=== PATIENT | female | born 1960 | race Caucasian/White ===

== ENCOUNTER → 2016-07-09 | Outpatient (CLI) | payer BC ==
--- NOTE | 2016-07-09 10:09 | P.HPBAR ---
Bariatric H&P - History & Physicial H&P Date: 07/09/16 History & Physicial: Visit/CC: bariatric follow up Patient initial contact: Initial weight: 98.339 kg Initial weight in pounds: 216.80 Height: 5 ft 3 in Initial BMI: 38.4 Last weight: Current weight: 92.805 kg Current weight in pounds: 204.60 Current BMI: 36.2 [place] body weight (based on NIH guidelines): 52.163 kg Excess body weight loss: 11.9% The patient is a 55 year-old F who presents for Bariatric Assessment. The patient's 10 days status post sleeve gastrectomy. She has lost approximately 12 pounds. She has no real complaints. She has minimal GERD. Past Medical History Past Medical History: Asthma, GERD/Reflux, Osteoarthritis (OA), Thyroid Disorder Additional Past Medical History / Comment(s): hx hiatal hernia, History of Any Multi-Drug Resistant Organisms: None Reported Past Surgical History: Bariatric Surgery, Section, Cholecystectomy, Hysterectomy, Orthopedic Surgery, Tonsillectomy Additional Past Surgical History / Comment(s): lt knee arthroscopy, laparoscopy exams with anesthesia x 2, lap band /later revision, left foot surgery x 2, rt foot surgery, sinus surgery, surgery for fx nose, lap band removed. Gastric sleeve. Past Anesthesia/Blood Transfusion Reactions: No Reported Reaction Past Psychological History: No Psychological Hx Reported Smoking Status: Never smoker Past Alcohol Use History: Occasional Past Drug Use History: None Reported - Past Family History Mother Family Medical History: Diabetes Mellitus Father Family Medical History: Cancer Additional Family Medical History / Comment(s): colon Brother(s) Family Medical History: Deep Vein Thrombosis (DVT) Surgical - Exam Vital Signs Temp Pulse Resp BP 97.9 F 76 16 107/58 07/09/16 09:53 07/09/16 09:53 07/09/16 09:53 07/09/16 09:53 - General well developed, no distress - Eyes PERRL - Neck no masses - Respiratory normal expansion - Cardiovascular Rhythm: regular - Abdomen Abdomen: soft, non tender Bariatric Assessment & Plan Plan: Status post sleeve yesterday. Patient doing quite well. She will slowly advance her diet. She'll follow-up in 2 weeks. She is to continue her Carafate. Bariatric Checklist Checklist: Plan: Checklist: EGD: 1. Hiatal hernia: 2. H. Pylori: HgbA1c: Vitamin D: Smoking: Never smoker Primary care physician referral: gorge malik Psychiatry clearance: Cardiology clearance: Sleep study: Diet journal: VTE risk score: VTE risk level: Rehab needs at discharge:
== END | disposition home or self-care (01) ==
CPT/HCPCS: 99211

== ENCOUNTER → 2016-07-22 | Outpatient (CLI) | payer BC | END | disposition home or self-care (01) | CPT/HCPCS: 97803 ==

== ENCOUNTER → 2016-07-29 | Outpatient (CLI) | payer BC ==
--- NOTE | 2016-07-29 15:46 | P.HPBAR ---
Bariatric H&P - History & Physicial H&P Date: 07/29/16 History & Physicial: Visit/CC: sleeve f/u (surgery 06/28/16) Patient initial contact: Initial weight: 98.339 kg Initial weight in pounds: 216.80 Height: 5 ft 3 in Initial BMI: 38.4 Last weight: Current weight: 89.222 kg Current weight in pounds: 196.70 Current BMI: 34.8 [place] body weight (based on NIH guidelines): 52.163 kg Excess body weight loss: 19.7% The patient is a 55 year-old F who presents for Bariatric Assessment. The patient is status post sleeve gastrectomy. She is doing quite well. She is approximately 1 month postop. She is amenable GERD symptoms. Past Medical History Past Medical History: Asthma, GERD/Reflux, Osteoarthritis (OA), Thyroid Disorder Additional Past Medical History / Comment(s): hx hiatal hernia, History of Any Multi-Drug Resistant Organisms: None Reported Past Surgical History: Bariatric Surgery, Section, Cholecystectomy, Hysterectomy, Orthopedic Surgery, Tonsillectomy Additional Past Surgical History / Comment(s): lt knee arthroscopy, laparoscopy exams with anesthesia x 2, lap band /later revision, left foot surgery x 2, rt foot surgery, sinus surgery, surgery for fx nose, lap band removed April 2016. Gastric sleeve 06/28/16 Past Anesthesia/Blood Transfusion Reactions: No Reported Reaction Past Psychological History: No Psychological Hx Reported Smoking Status: Never smoker Past Alcohol Use History: Occasional Past Drug Use History: None Reported - Past Family History Mother Family Medical History: Diabetes Mellitus Father Family Medical History: Cancer Additional Family Medical History / Comment(s): colon Brother(s) Family Medical History: Deep Vein Thrombosis (DVT) Surgical - Exam Vital Signs Temp Pulse Resp BP 98.0 F 81 14 112/71 07/29/16 14:32 07/29/16 14:32 07/29/16 14:32 07/29/16 14:32 - General well developed, no distress - Eyes PERRL - ENT normal pinna - Neck no masses - Respiratory normal expansion - Cardiovascular Rhythm: regular - Abdomen Abdomen: soft, non tender Bariatric Assessment & Plan Plan: Status post sleeve gastrectomy. Patient's GERD symptoms will be observed. She' ll follow-up one month. Bariatric Checklist Checklist: Plan: Checklist: EGD: 1. Hiatal hernia: 2. H. Pylori: HgbA1c: Vitamin D: Smoking: Never smoker Primary care physician referral: gorge malik Psychiatry clearance: Cardiology clearance: Sleep study: Diet journal: VTE risk score: VTE risk level: Rehab needs at discharge:
== END | disposition home or self-care (01) ==
CPT/HCPCS: 99211

== ENCOUNTER → 2016-09-09 | Outpatient (CLI) | payer BC ==
[2016-09-09 14:20] VITALS: BP 130/83; PULSE 71; RESP 16; TEMP 98.3; BMI 32.8
--- NOTE | 2016-09-09 14:44 | P.HPBAR ---
Bariatric H&P - History & Physicial H&P Date: 09/09/16 History & Physicial: Visit/CC: sleeve follow-up Patient initial contact: Initial weight: 98.339 kg Initial weight in pounds: 216.80 Height: 5 ft 3 in Initial BMI: 38.4 Last weight: Current weight: 84.028 kg Current weight in pounds: 185.00 Current BMI: 32.8 [place] body weight (based on NIH guidelines): 52.163 kg Excess body weight loss: 31.2% The patient is a 55 year-old F who presents for Bariatric Assessment. The patient presents today for sleeve gastrectomy fall. She is doing quite well. She's had some minimal GERD symptoms. She states she had some nausea over the weekend which has resolved. Past Medical History Past Medical History: Asthma, GERD/Reflux, Osteoarthritis (OA), Thyroid Disorder Additional Past Medical History / Comment(s): hx hiatal hernia, History of Any Multi-Drug Resistant Organisms: None Reported Past Surgical History: Bariatric Surgery, Section, Cholecystectomy, Hysterectomy, Orthopedic Surgery, Tonsillectomy Additional Past Surgical History / Comment(s): lt knee arthroscopy, laparoscopy exams with anesthesia x 2, lap band /later revision, left foot surgery x 2, rt foot surgery, sinus surgery, surgery for fx nose, lap band removed April 2016. Gastric sleeve 06/28/16 Past Anesthesia/Blood Transfusion Reactions: No Reported Reaction Past Psychological History: No Psychological Hx Reported Smoking Status: Never smoker Past Alcohol Use History: Occasional Past Drug Use History: None Reported - Past Family History Mother Family Medical History: Diabetes Mellitus Father Family Medical History: Cancer Additional Family Medical History / Comment(s): colon Brother(s) Family Medical History: Deep Vein Thrombosis (DVT) Surgical - Exam Vital Signs Temp Pulse Resp BP 98.3 F 71 16 130/83 09/09/16 14:18 09/09/16 14:18 09/09/16 14:18 09/09/16 14:18 - General well developed, no distress - Eyes PERRL - ENT normal pinna - Respiratory normal expansion - Abdomen Abdomen: soft, non tender Bariatric Assessment & Plan Plan: The patient is status post sleeve yesterday. Her GERD symptoms are minimal. She lost 11 pounds since her last visit. She'll follow-up in one month. Bariatric Checklist Checklist: Plan: Checklist: EGD: 1. Hiatal hernia: 2. H. Pylori: HgbA1c: Vitamin D: Smoking: Never smoker Primary care physician referral: gorge malik Psychiatry clearance: Cardiology clearance: Sleep study: Diet journal: VTE risk score: VTE risk level: Rehab needs at discharge:
== END | disposition home or self-care (01) ==
LOC: BARWHC3 13:06
PROVIDERS: ATTEND Surgery
DX: Z48.815 Encounter for surgical aftercare following surgery on the digestive system (principal); E66.01 Morbid (severe) obesity due to excess calories; Z68.30 Body mass index [BMI] 30.0-30.9, adult; Z98.84 Bariatric surgery status; Z71.3 Dietary counseling and surveillance; K21.9 Gastro-esophageal reflux disease without esophagitis
CPT/HCPCS: 99211

== ENCOUNTER → 2016-12-09 | Outpatient (CLI) | payer BC ==
[2016-12-09 14:16] VITALS: BP 137/63; PULSE 66; RESP 14; TEMP 97.8; BMI 28.3
[2016-12-09 14:42] LABS: CH 28.7; CHCM 31.9; HCT 41.7 % (34.0-46.0); HDW 2.37; HGB 13.5 gm/dL (11.4-16.0); MCH 29.3 pg (25.0-35.0); MCHC 32.4 g/dL (31.0-37.0); MCV 90.5 fL (80.0-100.0); RBC 4.61 m/uL (3.80-5.40); RDW 14.4 % (11.5-15.5); WBC 6.5 k/uL (3.8-10.6)
[2016-12-09 15:07] LABS: ALT 27 U/L (9-52); AST 20 U/L (14-36); Alkaline Phosphatase 82 U/L (38-126); Anion Gap 10 mmol/L; Blood Urea Nitrogen 14 mg/dL (7-17); Calcium 9.7 mg/dL (8.4-10.2); Carbon Dioxide 29 mmol/L (22-30); Chloride 105 mmol/L (98-107); Glucose 105 mg/dL (74-99); Non-African American GFR(MDRD) >60 (>60 ml/min/1.73 sqM); Potassium 4.1 mmol/L (3.5-5.1); Sodium 144 mmol/L (137-145); Total Bilirubin 0.4 mg/dL (0.2-1.3); Total Protein 6.8 g/dL (6.3-8.2)
--- NOTE | 2016-12-09 15:57 | P.HPBAR ---
Bariatric H&P - History & Physicial H&P Date: 12/09/16 History & Physicial: Visit/CC: 6 mos sleeve f/u Patient initial contact: Initial weight: 98.339 kg Initial weight in pounds: 216.80 Height: 5 ft 3 in Initial BMI: 38.4 Last weight: Current weight: 72.711 kg Current weight in pounds: 160.30 Current BMI: 28.3 [place] body weight (based on NIH guidelines): 52.163 kg Excess body weight loss: 55.5% The patient is a 56 year-old F who presents for Bariatric Assessment. Patient rents today for sleeve gastrectomy follow-up. She's doing quite well. She weighs 160 pounds A she has lost approximately 57 pounds since surgery. She has some mild GERD. Past Medical History Past Medical History: Asthma, GERD/Reflux, Osteoarthritis (OA), Thyroid Disorder Additional Past Medical History / Comment(s): hx hiatal hernia, History of Any Multi-Drug Resistant Organisms: None Reported Past Surgical History: Bariatric Surgery, Section, Cholecystectomy, Hysterectomy, Orthopedic Surgery, Tonsillectomy Additional Past Surgical History / Comment(s): lt knee arthroscopy, laparoscopy exams with anesthesia x 2, lap band /later revision, left foot surgery x 2, rt foot surgery, sinus surgery, surgery for fx nose, lap band removed April 2016. Gastric sleeve 06/28/16 Past Anesthesia/Blood Transfusion Reactions: No Reported Reaction Past Psychological History: No Psychological Hx Reported Smoking Status: Never smoker Past Alcohol Use History: Occasional Past Drug Use History: None Reported - Past Family History Mother Family Medical History: Diabetes Mellitus Father Family Medical History: Cancer Additional Family Medical History / Comment(s): colon Brother(s) Family Medical History: Deep Vein Thrombosis (DVT) Surgical - Exam Vital Signs Temp Pulse Resp BP 97.8 F 66 14 137/63 12/09/16 14:03 12/09/16 14:03 12/09/16 14:03 12/09/16 14:03 - General well developed, no distress - Eyes PERRL - Neck no masses - Respiratory normal expansion - Cardiovascular Rhythm: regular - Abdomen Abdomen: soft, non tender Results - Labs 12/09/16 14:27 12/09/16 14:27 Abnormal Lab Results - Last 24 Hours (Table) 12/09/16 Range/Units 14:27 Glucose 105 H (74-99) mg/dL TSH 0.175 L (0.465-4.680) mIU/L Diabetes panel 12/09/16 Range/Units 14:27 Sodium 144 (137-145) mmol/L Potassium 4.1 (3.5-5.1) mmol/L Chloride 105 (98-107) mmol/L Carbon Dioxide 29 (22-30) mmol/L BUN 14 (7-17) mg/dL Creatinine 0.70 (0.52-1.04) mg/dL Glucose 105 H (74-99) mg/dL Calcium 9.7 (8.4-10.2) mg/dL AST 20 (14-36) U/L ALT 27 (9-52) U/L Alkaline Phosphatase 82 (38-126) U/L Total Protein 6.8 (6.3-8.2) g/dL Albumin 4.0 (3.5-5.0) g/dL Thyroid panel 12/09/16 Range/Units 14:27 TSH 0.175 L (0.465-4.680) mIU/L Calcium panel 12/09/16 Range/Units 14:27 Calcium 9.7 (8.4-10.2) mg/dL Albumin 4.0 (3.5-5.0) g/dL Pituitary panel 12/09/16 Range/Units 14:27 Sodium 144 (137-145) mmol/L Potassium 4.1 (3.5-5.1) mmol/L Chloride 105 (98-107) mmol/L Carbon Dioxide 29 (22-30) mmol/L BUN 14 (7-17) mg/dL Creatinine 0.70 (0.52-1.04) mg/dL Glucose 105 H (74-99) mg/dL Calcium 9.7 (8.4-10.2) mg/dL TSH 0.175 L (0.465-4.680) mIU/L Adrenal panel 12/09/16 Range/Units 14:27 Sodium 144 (137-145) mmol/L Potassium 4.1 (3.5-5.1) mmol/L Chloride 105 (98-107) mmol/L Carbon Dioxide 29 (22-30) mmol/L BUN 14 (7-17) mg/dL Creatinine 0.70 (0.52-1.04) mg/dL Glucose 105 H (74-99) mg/dL Calcium 9.7 (8.4-10.2) mg/dL Total Bilirubin 0.4 (0.2-1.3) mg/dL AST 20 (14-36) U/L ALT 27 (9-52) U/L Alkaline Phosphatase 82 (38-126) U/L Total Protein 6.8 (6.3-8.2) g/dL Albumin 4.0 (3.5-5.0) g/dL Bariatric Assessment & Plan Plan: Status post sleeve gastrectomy. Patient is doing quite well. Her GERD symptoms are minimal. She'll follow-up in one month. Bariatric Checklist Checklist: Plan: Checklist: EGD: 1. Hiatal hernia: 2. H. Pylori: HgbA1c: Vitamin D: Smoking: Never smoker Primary care physician referral: gorge malik Psychiatry clearance: Cardiology clearance: Sleep study: Diet journal: VTE risk score: VTE risk level: Rehab needs at discharge:
[2016-12-09 16:09] LABS: Vitamin B12 668 pg/mL (239-931)
== END | disposition home or self-care (01) ==
LOC: BARWHC3 13:49
PROVIDERS: ATTEND Surgery
DX: Z48.815 Encounter for surgical aftercare following surgery on the digestive system (principal); K21.9 Gastro-esophageal reflux disease without esophagitis; E66.01 Morbid (severe) obesity due to excess calories; E44.0 Moderate protein-calorie malnutrition; E55.9 Vitamin D deficiency, unspecified; Z98.84 Bariatric surgery status
CPT/HCPCS: 36415; 80053; 82306; 82525; 82607; 82746; 84425; 84443; 84590; 85027; 99211

== ENCOUNTER → 2017-02-14 | Outpatient (CLI) | payer BC ==
--- NOTE | 2017-02-17 10:16 | MM ---
Reason for exam: screening (asymptomatic). Last mammogram was performed 4 years and 4 months ago. History: Patient is postmenopausal. Physical Findings: A clinical breast exam by your physician is recommended on an annual basis and results should be correlated with mammographic findings. MG Screening Mammo w CAD Bilateral CC and MLO view(s) were taken. Prior study comparison: October 07, 2012, bilateral digital screening mammo w/CAD. May 02, 2011, bilateral digital screening mammo w/CAD. There are scattered fibroglandular densities. There is no discrete abnormality. No significant changes when compared with prior studies. ASSESSMENT: Negative, BI-RAD 1 RECOMMENDATION: Routine screening mammogram of both breasts in 1 year.
== END | disposition home or self-care (01) ==
LOC: RADMAMWWP 13:10
PROVIDERS: ATTEND Family Medicine
DX: Z12.31 Encounter for screening mammogram for malignant neoplasm of breast (principal)

== ENCOUNTER → 2017-05-07 | Outpatient (CLI) | payer BC ==
--- NOTE | 2017-05-07 15:30 | WWHP ---
[facility] - HISTORY AND PHYSICAL DATE OF SERVICE: 05/07/2017 CHIEF COMPLAINT: The patient is here for her routine gynecologic exam. HPI: This is a 56-year-old, G2, P2, with an LMP of 1985 with status post LISA with unilateral oophorectomy and she also had the other ovary removed at a later time for benign reasons. It has been about 4-5 years since her last pelvic exam. She did have a mammogram on 02/14/17, which was benign. She is without gynecologic complaints. PAST MEDICAL HISTORY: Hypothyroidism, anxiety, and gastroesophageal reflux disease. MEDICATIONS: Vega Thyroid 60 mg daily. Fluoxetine 10 mg daily. Omeprazole 20 mg p.r.n. Probiotic 1 daily. [id number] which contains of vitamin D3 2 drops daily. ALLERGIES: TO MORPHINE AND SULFA. PAST SURGICAL HISTORY: Lap band surgery 2002, lap band revision 2008, gastric sleeve surgery 2015, laparoscopic cholecystectomy in the past. section x2, colonoscopy 2011 , LISA with unilateral oophorectomy and appendectomy in 1987 and removal of the remaining ovary at age 34. 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 A dermoid cyst was also removed at the time of hysterectomy. She briefly used ERT after the hysterectomy, but this was for 1 year or less. She has no history of STDs. SOCIAL HISTORY: She denies tobacco, alcohol, and drug use. She no longer drinks alcohol because it seems to burn after her gastric sleeve surgery. She has been since 1979 and shows dogs. FAMILY HISTORY: Father had colon cancer. Mother has type 1 diabetes. REVIEW OF SYSTEMS: She has lost a significant amount of weight following her bariatric surgeries. She previously was up to 237 pounds prior to the surgeries. She has lost approximately 70 pounds following her gastric sleeve surgery. She denies respiratory, cardiac or GI problems. PHYSICAL EXAM: Blood pressure 120/88, height 5 feet 3 inches, weight 139 pounds, BMI 25, temperature 96.3, pulse 75. This is a well-developed, well-nourished white female who is alert and oriented x3, in no acute distress. HEENT is within normal limits. NECK: Supple without mass or thyromegaly chest. LUNGS: Clear to auscultation. HEART: Regular rate and rhythm. Breasts are without mass or discharge. Axillary exam is negative for adenopathy. Back negative for CVA tenderness. ABDOMEN: Soft, nontender, without palpable masses. Pelvic exam: External genitalia reveals mild atrophy without lesions. Vagina reveals mild atrophy without lesions. There is no evidence of prolapse. Bimanual exam is negative for mass or tenderness. Rectovaginal exam is negative for mass or tenderness and is negative for occult blood. Extremities nontender. IMPRESSION: 1. A 56-year-old menopausal female status post Total abdominal hysterectomy and bilateral salpingo-oophorectomy for benign reasons with normal gynecologic exam. 2. Status post significant weight loss following bariatric surgery. PLAN: 1. Pap smears have been discontinued. 2. Self breast examination was discussed. 3. Osteoporosis prevention was discussed. She states she has had bone density testing done through Dr. Celis and these have been normal according to the patient. 4. She will return in 1 year. MMODL / IJN: [id number] / MTDD
== END | disposition home or self-care (01) ==
LOC: WWCWWP 11:19
PROVIDERS: ATTEND Obstetrics & Gynecology
DX: Z01.419 Encounter for gynecological examination (general) (routine) without abnormal findings (principal)

== ENCOUNTER → 2017-05-27 | Outpatient (CLI) | payer BC ==
--- NOTE | 2017-05-28 | MR ---
EXAMINATION TYPE: MR shoulder RT wo con DATE OF EXAM: 05/27/2017 COMPARISON: NONE HISTORY: RT SHOULDER PAIN TECHNIQUE: Multiplanar, multisequence imaging of the right shoulder is performed without contrast. FINDINGS: The subscapularis tendon is intact. Biceps tendon is intact. There are small areas of increased signa l in the supraspinatus tendon near the attachment on the greater tuberosity of the humerus. There is no retraction. There is no subacromial impingement. The glenohumeral joint is intact. Glenoid camrel a ppear intact. There is no evidence of a fracture. The AC joint is intact. There are small degenerativ e cystic changes at the greater tuberosity of the humerus. IMPRESSION: Mild signal changes in the supraspinatus tendon consistent with focal tendinitis. No retraction. No e vidence of complete rotator cuff tear.
== END | disposition home or self-care (01) ==
LOC: RADMRIMAIN 17:04
PROVIDERS: ATTEND Orthopaedic Surgery
DX: M67.813 Other specified disorders of tendon, right shoulder (principal); M25.511 Pain in right shoulder

== ENCOUNTER → 2017-12-22 | Outpatient (CLI) | payer BC ==
--- NOTE | 2017-12-23 06:08 | CT ---
EXAMINATION TYPE: CT soft tissue neck w con DATE OF EXAM: 12/22/2017 HISTORY: Left sided neck swelling and facial tenderness COMPARISON: CT neck July 02, 2012 CT DLP: 455 mGycm. Automated Exposure Control for Dose Reduction was Utilized. TECHNIQUE: CT scan of the neck is performed with IV Contrast, patient injected with 100 mL of Isovue 300, axial images are obtained, coronal and sagittal reformatted images are reviewed. FINDINGS: Airway: No gross abnormality seen. Parotid/submandibular glands: No gross abnormality seen. Carotid/Vascular Structures: No significant plaque at carotid bulb level is present bilaterally Osseous Structures: Straightening of cervical spine is seen. Coronal images demonstrate levoconvex sc oliotic curvature centered in the upper to mid thoracic spine . Other: There is 1.1 cm mucous retention cyst or polyp redemonstrated posterior-inferior right maxilla ry sinus is stable or perhaps slightly larger versus prior CT. There are prominent but subcentimeter left-sided submandibular lymph nodes, and these in retrospect a re unchanged in size from 2012 CT. Largest at level of hyoid bone posterior to the left submandibular gland and anterior to carotid and internal jugular vein measures 1.0 x 0.8 cm. No suspicious inflamm atory change or fat stranding is present. Parapharyngeal fat spaces are symmetric and maintained. IMPRESSION: Prominent but subcentimeter asymmetric left-sided lymph nodes grossly unchanged from 2012 CT this presumed benign. No new suspicious mass or adenopathy is seen to account for patient's sympt oms.
== END | disposition home or self-care (01) ==
LOC: RADCTMAIN 18:59
PROVIDERS: ATTEND Family Medicine
DX: R22.1 Localized swelling, mass and lump, neck (principal); Z88.2 Allergy status to sulfonamides; Z88.5 Allergy status to narcotic agent
CPT/HCPCS: 70491; Q9967

== ENCOUNTER 2018-06-25 08:54 | Day surgery (SDC) | payer BC ==
[2018-06-23 10:27] VITALS: BMI 22.4
--- NOTE | 2018-06-24 17:27 | HP ---
HISTORY AND PHYSICAL REASON FOR ADMISSION: 06/25/2018 HISTORY OF PRESENT ILLNESS: Shahla Stover is a 57-year-old patient seen with progressive right shoulder pain. We discussed options. She elected to proceed with arthroscopy. Consent was obtained. PAST MEDICAL HISTORY: Hypothyroidism. PAST SURGICAL HISTORY: Lap band surgery, section, cholecystectomy, hysterectomy, knee arthroscopy. MEDS: Thyroid, omeprazole, Prozac and [place]. ALLERGIES: MORPHINE, SULFA. SOCIAL HISTORY: Patient denies tobacco use. PHYSICAL EXAMINATION: Evaluation of the right shoulder: Flexion is 150 degrees, abduction is 130 degrees, external rotation is 50 degrees with pain and weakness. Tenderness along the anterolateral acromion rotator cuff insertion site. Impingement positive at 90 degrees. Drop-arm sign is positive. Distal neurovascular exam is intact. RADIOGRAPHS: Radiographs of the right shoulder revealed a type 2 anterior acromion, acromioclavicular joint osteoarthritis and cystic changes of the greater tuberosity. An MRI of the right shoulder revealed some tendinitis. IMPRESSION: 1. Right shoulder impingement with possible rotator cuff tear. 2. Right shoulder acromioclavicular joint osteoarthritis. PLAN: Right shoulder arthroscopy with subacromial decompression, possible arthroscopic rotator cuff repair, possible Blanca procedure and debridement. Surgery is scheduled for 06/25/2018. MMODL / IJN: [id number] /
[~2018-06-25 08:54] MED LIST: DEXAMETHASONE SOD PHOSPHATE 10 MG/ML 1 ML VIAL IV ONE; LACTATED RINGERS 1,000 ML IV SCH; LIDOCAINE 1% 20 ML VIAL (10MG/ML) FOR IV START INTRADERMA PRN; MIDAZOLAM (PF) 2 MG/2 ML VIAL IV PRN; ONDANSETRON 4 MG/2 ML VIAL IVP ONE; ceFAZolin 1,000 MG in DEXTROSE/WATER 1 50ML.BAG IVPB ONE; fentaNYL (PF) 50 MCG/ML 2 ML AMP IV PRN
[2018-06-25] MEDS ORDERED: fentaNYL (PF) 50 MCG/ML 2 ML AMP IVP ONE (09:36)
[2018-06-25] MEDS ORDERED: ONDANSETRON 4 MG/2 ML VIAL IVP ONE (09:40)
[2018-06-25] MEDS ORDERED: NEOSTIGMINE 1 MG/ML 10 ML VIAL ONE (10:33)
[2018-06-25] MEDS ORDERED: ROPIVACAINE 5 MG/ML 30 ML VIAL ONE (10:33)
[2018-06-25] MEDS ORDERED: ePHEDrine SULFATE/0.9% NACL/PF 50 MG/5 ML SYRINGE IV ONE (10:33)
[2018-06-25] MEDS ORDERED: SUCCINYLCHOLINE CHLORIDE 100 MG/5 ML SYR IV ONE (10:33)
[2018-06-25] MEDS ORDERED: GLYCOPYRROLATE 0.2 MG/ML 2 ML VIAL ONE (10:33)
[2018-06-25] MEDS ORDERED: ROCURONIUM BROMIDE 10 MG/ML 10 ML VIAL IV ONE (10:33)
[2018-06-25] MEDS ORDERED: LIDOCAINE 1% INJ 10MG/ML (20 ML MDV) ONE (10:33)
[2018-06-25] MEDS ORDERED: MIDAZOLAM 2 MG/2 ML VIAL ONE (10:33)
[2018-06-25] MEDS ORDERED: PROPOFOL 10 MG/ML 20 ML VIAL IV ONE (10:33)
[2018-06-25] MEDS ORDERED: fentaNYL (PF) 50 MCG/ML 2 ML AMP ONE (10:33)
[2018-06-25] MEDS ORDERED: LACTATED RINGERS 1,000 ML IV ONE (11:52)
--- NOTE | 2018-06-25 12:08 | P.OP ---
Date of Procedure: 06/25/18 Preoperative Diagnosis: Right shoulder impingement Postoperative Diagnosis: 1. Right shoulder rotator cuff tear 2. Right shoulder impingement 3. Right shoulder partial long head biceps tendon Procedure(s) Performed: 1. Right shoulder arthroscopic rotator cuff repair 2. Right shoulder arthroscopic subacromial decompression 3. Right shoulder arthroscopic biceps tenotomy Implants: None Anesthesia: GETA, regional (Interscalene block) Surgeon: Carlitos Banegas Principal Electrical Engineer #1: Justin Bianchi Estimated Blood Loss (ml): 10 Pathology: none sent Condition: stable Disposition: PACU Indications for Procedure: 57-year-old patient seen with progressive right shoulder pain. After treatment options were discussed, she elected to proceed with arthroscopy. Operative Findings: see description of procedure Description of Procedure: Patient underwent an interscalene block by department of anesthesia. The patient was then taken to the operative suite. The patient underwent a general anesthetic by the department of anesthesia. The patient was placed into a lateral position and secured. There was appropriate padding of the bony prominence. Right shoulder was then prepped and draped in normal sterile orthopedic fashion. We placed the extremity in 10 pounds of longitudinal traction. A posterior incision was now made for a posterior working portal site. The trocar and cannula were inserted into the glenohumeral joint. Arthroscopy was initiated. Spinal needle was now inserted anteriorly, to ascertain the anterior working portal site. An incision was now made in that area, a trocar was inserted followed by a probe. There was partial tearing long head biceps tendon. The labrum appeared somewhat deficient anteriorly but no tear was evident. The glenohumeral joint appeared unremarkable with no significant chondromalacia present. The remainder of the labrum was stable. I performed an arthroscopic biceps tenotomy. The anchor was stable. Instruments removed from glenohumeral joint. Utilizing the posterior working portal site, the trocar and cannula were inserted into the subacromial space. Arthroscopy initiated. I made an incision 2 fingerbreadths lateral to the acromion. I introduced my trocar followed by my ArthroCare ablator. I now began ablating thick subacromial bursal tissue, which exposed the undersurface of the anterior acromion. There was diminished subacromial space. There was a very prominent anterior acromion. A motorized bur was introduced and a subacromial decompression was performed. I also excised some osteophytes off the inferior aspect of the distal clavicle. The AC joint was visualized and noted to be moderately arthritic. I did not think enough toward a Blanca procedure. I turned my attention to the rotator cuff tendon. I noted intrasubstance tear along the mid body of the supraspinatus tendon. The margins were debrided down to stable tendon tissue. I passed 2 sutures through that intrasubstance tear and repaired the tear in a side-to- side fashion. We had a good stable repair. I injected 1 mL Renue intra- articular Instruments now removed from the portal sites. All portal sites were approximated with nylon suture. Sterile dressings were applied followed by a shoulder sling. Justin FOFANA assisted in this complex case. The patient was awakened, transferred to a bed, and taken to recovery in stable condition.
[2018-06-25 12:26] VITALS: TEMP 97.6
[2018-06-25 12:47] VITALS: RESP 16
[2018-06-25 13:29] VITALS: BP 111/66; PULSE 69
--- NOTE | 2018-06-25 14:05 | P.ONQ ---
Anesthesiology Proc Note - PNB - Peripheral Nerve Block Performed Right Interscalene Single Time Out Performed: Yes Procedure Start Time: 09:35 Indication: Acute Post-Operative Pain, Analgesia Specifically requested for management of pain by DrAnkush: Carlitos Banegas Sedation Type: Sedate with meaningful contact maintained Preparation: Sterile Prep Position: Supine Catheter: None Needle Types: Other (see comment) (Pajunk) Needle Size: 50mm (2") Needle Gauge: 21 Injectate: 0.5% Ropivacaine (see comment for volume) (20cc) Blood Aspirated: No Pain Paresthesia on Injection Noted: No Resistance on Injection: Normal Events: Uneventful and Well Tolerated
== END 2018-06-25 14:06 | disposition home or self-care (01) ==
LOC: OR 08:54
PROVIDERS: ATTEND Orthopaedic Surgery
DX: M75.101 Unspecified rotator cuff tear or rupture of right shoulder, not specified as traumatic (principal); M75.41 Impingement syndrome of right shoulder; S46.111A Strain of muscle, fascia and tendon of long head of biceps, right arm, initial encounter; X58.XXXA Exposure to other specified factors, initial encounter; M19.011 Primary osteoarthritis, right shoulder; M25.711 Osteophyte, right shoulder; E03.9 Hypothyroidism, unspecified; K21.9 Gastro-esophageal reflux disease without esophagitis; J45.909 Unspecified asthma, uncomplicated; M85.80 Other specified disorders of bone density and structure, unspecified site; F39 Unspecified mood [affective] disorder; Z79.891 Long term (current) use of opiate analgesic; Z79.890 Hormone replacement therapy; Z79.899 Other long term (current) drug therapy; Z90.49 Acquired absence of other specified parts of digestive tract; Z90.710 Acquired absence of both cervix and uterus; Z98.84 Bariatric surgery status; Z88.5 Allergy status to narcotic agent; Z88.0 Allergy status to penicillin; Z88.2 Allergy status to sulfonamides; Z88.8 Allergy status to other drugs, medicaments and biological substances
CPT/HCPCS: 64415; 29826; 29827; C1713; C1894; C1765; J2250 ×2; J1100; J2710; J2405; J2001; J3010; J0690; J2795; J0330; J2704

== ENCOUNTER 2018-11-02 08:39 | Day surgery (SDC) | payer BC ==
[2018-10-28 11:36] VITALS: BMI 22.6
--- NOTE | 2018-11-01 17:01 | HP ---
HISTORY AND PHYSICAL Shahla Stover is a 58-year-old patient seen with right shoulder adhesive capsulitis. She has history of previous arthroscopy. We discussed options. She elected to proceed with manipulation under anesthesia right shoulder with steroid injection. Consent was obtained. PAST MEDICAL HISTORY: Hypothyroidism and gastroesophageal reflux disease. PAST SURGICAL HISTORY: Lap band surgery, tubal ligation, cholecystectomy, hysterectomy, left knee arthroscopy, right shoulder arthroscopy. MEDICATIONS: [place] Thyroid, omeprazole, Prozac. ALLERGIES: MORPHINE SULFATE AND SULFA. SOCIAL HISTORY: She denies tobacco use. PHYSICAL EXAMINATION: Physical evaluation right shoulder. She has well-healed arthroscopic portal sites. Flexion is 120, abduction is 100, external rotation is 50 with some weakness. Distal neurovascular exam is intact. RADIOGRAPHS: Right shoulder revealed stable conversion to a type 1 anterior acromion. IMPRESSION: 1. Right shoulder adhesive capsulitis. 2. History of right shoulder arthroscopy. 3. Hypothyroidism. 4. Gastroesophageal reflux disease. PLAN: Manipulation under anesthesia right shoulder with steroid injection. Surgery scheduled for 11/02/2018. MMODL / IJN: [id number] /
[~2018-11-02 08:39] MED LIST changes: -DEXAMETHASONE SOD PHOSPHATE 10 MG/ML 1 ML VIAL IV ONE; -MIDAZOLAM (PF) 2 MG/2 ML VIAL IV PRN; -ONDANSETRON 4 MG/2 ML VIAL IVP ONE; -ceFAZolin 1,000 MG in DEXTROSE/WATER 1 50ML.BAG IVPB ONE; -fentaNYL (PF) 50 MCG/ML 2 ML AMP IV PRN
[2018-11-02 09:00] VITALS: TEMP 98.1
[2018-11-02] MEDS ORDERED: fentaNYL (PF) 50 MCG/ML 2 ML AMP ONE (09:15)
[2018-11-02] MEDS ORDERED: PROPOFOL 10 MG/ML 20 ML VIAL IV ONE (09:15)
[2018-11-02] MEDS ORDERED: KETOROLAC 30 MG/ML 1 ML VIAL ONE (09:15)
[2018-11-02] MEDS ORDERED: BUPIVACAIN-EPI 0.5%-1:200,000 30 ML VIAL INTRAARTIC ONE (09:35)
[2018-11-02] MEDS ORDERED: methylPREDNISolone ACETATE 80 MG/ML 1 ML VIAL INTRAARTIC ONE (09:35)
--- NOTE | 2018-11-02 09:41 | P.OP ---
Date of Procedure: 11/02/18 Preoperative Diagnosis: Right shoulder adhesive capsulitis Postoperative Diagnosis: Right shoulder adhesive capsulitis Procedure(s) Performed: Manipulation under anesthesia right shoulder with steroid injection Anesthesia: MAC, local Surgeon: Carlitos Banegas Estimated Blood Loss (ml): 0 Pathology: none sent Condition: stable Disposition: PACU Indications for Procedure: 58-year-old patient seen with symptomatic right shoulder adhesive capsulitis. After treatment options were discussed, she elected to proceed with manipulation under anesthesia with steroid injection. Operative Findings: See description of procedure Description of Procedure: The patient was taken to monitored anesthesia area. The patient underwent IV sedation by the department of anesthesia. Once sufficient anesthesia was noted a manipulation of the right shoulder was performed. I was able to regain near full range of motion with audible tearing of the adhesions. The anterior aspect of the right shoulder was prepped and draped in the normal sterile orthopedic fashion. A solution of 3 mL half percent plain Marcaine and 1 mL Depo-Medrol injected into the right glenohumeral joint. A sterile Band-Aid was applied. The patient was awakened having entire procedure well.
[2018-11-02] MEDS: HYDROmorphone 1 MG/ML 1 ML SYRINGE IVP ONE ×2 (09:51→09:56)
[2018-11-02] MEDS ORDERED: HYDROcodone/APAP 7.5-325MG 1 EACH TAB PO ONE (10:16)
[2018-11-02 10:31] VITALS: RESP 16
[2018-11-02 10:58] VITALS: BP 113/67; PULSE 62
== END 2018-11-02 11:06 | disposition home or self-care (01) ==
LOC: OR 08:39
PROVIDERS: ATTEND Orthopaedic Surgery
DX: M75.01 Adhesive capsulitis of right shoulder (principal); Z98.890 Other specified postprocedural states; E03.9 Hypothyroidism, unspecified; K21.9 Gastro-esophageal reflux disease without esophagitis; J45.909 Unspecified asthma, uncomplicated; Z79.890 Hormone replacement therapy; Z79.899 Other long term (current) drug therapy; Z88.5 Allergy status to narcotic agent; Z88.2 Allergy status to sulfonamides
CPT/HCPCS: 23700; 20610; J1040; J3010; J1885; J1170; J2704

== ENCOUNTER 2019-02-16 16:24 | Emergency (ER) | payer BC ==
[2019-02-16] MEDS ORDERED: KETOROLAC 30 MG/ML 1 ML VIAL IVP STA (16:58)
[2019-02-16] MEDS ORDERED: SODIUM CHLORIDE 0.9% 1,000 ML IV STA ×2 (16:58)
[2019-02-16] MEDS ORDERED: ONDANSETRON 4 MG/2 ML VIAL IVP STA (16:58)
--- NOTE | 2019-02-16 17:09 | ED ---
Abdominal Pain HPI - General Chief Complaint: Abdominal Pain Stated Complaint: rt side pain Time Seen by Provider: 02/16/19 16:53 Source: patient, RN notes reviewed, old records reviewed Mode of arrival: ambulatory Limitations: no limitations - History of Present Illness Initial Comments: This is a 58-year-old female the ER for evaluation of bowel pain severe abdominal pain. Patient gets pain on and off for a year. Mild nausea no vomiting no fevers. No blood in the stool no blood in the urine. Patient has had prior evaluation of her appendix she has had her appendix removed. Patient has had this pain evaluated in the past with no significant acute findings. No modifying factors for pain at home. Patient is increasing tonight sharp within normal MD Complaint: abdominal pain (RLQ) -: days(s) Location: RLQ, suprapubic Radiation: suprapubic, R flank Migration to: suprapubic Severity: severe Severity scale (1-10): 9 Quality: stabbing, aching Consistency: intermittent Improves With: nothing Worsens With: nothing Associated Symptoms: nausea - Related Data Home Medications Medication Instructions Recorded Confirmed Thyroid,Pork [[place] Thyroid] 60 mg PO QAM 05/10/15 02/16/19 L.acidoph,Paracasei, B.lactis 1 cap PO QAM 06/21/16 02/16/19 [Probiotic] FLUoxetine HCL [PROzac] 10 mg PO DAILY 12/09/16 02/16/19 EPINEPHrine (Auto Inject) [Epipen] 0.3 mg IM ONCE PRN 10/28/18 02/16/19 Multivitamin [Multivitamins Adult 2 tab PO DAILY 10/28/18 02/16/19 Gummies] Ondansetron HCl [Zofran] 8 mg PO TID PRN 02/16/19 02/16/19 Pantoprazole Sodium [Protonix] 40 mg PO DAILY 02/16/19 02/16/19 Tamsulosin HCl [Flomax] 0.4 mg PO DAILY 02/16/19 02/16/19 Allergies Allergy/AdvReac Type Severity Reaction Status Date / Time bee venom protein (honey bee) Allergy Anaphylaxis Verified 02/16/19 17:22 hydromorphone Allergy Anaphylaxis Verified 02/16/19 17:22 morphine Allergy Anaphylaxis Verified 02/16/19 17:22 Sulfa (Sulfonamide Allergy Rash/Hives Verified 02/16/19 17:22 Antibiotics) Review of Systems ROS Statement: Those systems with pertinent positive or pertinent negative responses have been documented in the HPI. ROS Other: All systems not noted in ROS Statement are negative. Past Medical History Past Medical History: Asthma, GERD/Reflux, Musculoskeletal Disorder, Osteoarthritis (OA), Thyroid Disorder Additional Past Medical History / Comment(s): RT SHOULDER ROM LIMITED, SURG ON IT 06/25/18. History of Any Multi-Drug Resistant Organisms: None Reported Past Surgical History: Bariatric Surgery, Section, Cholecystectomy, Hysterectomy, Orthopedic Surgery, Tonsillectomy Additional Past Surgical History / Comment(s): Lt knee arthroscopy, laparoscopy exams w/ anesthesia x3, lap band /later revision, lt foot surgery x 2, right foot surgery, sinus surgery, surgery for fx nose, lap band removed April 2016. Gastric sleeve 06/28/16. Rt shoulder 06/25/18. Past Anesthesia/Blood Transfusion Reactions: No Reported Reaction Past Psychological History: No Psychological Hx Reported Smoking Status: Never smoker - Past Family History Mother Family Medical History: Diabetes Mellitus Father Family Medical History: Cancer Additional Family Medical History / Comment(s): Colon cancer. Brother(s) Family Medical History: Deep Vein Thrombosis (DVT) General Exam Limitations: no limitations General appearance: alert, in no apparent distress, anxious Head exam: Present: atraumatic, normocephalic, normal inspection Eye exam: Present: normal appearance, PERRL, EOMI. Absent: scleral icterus, conjunctival injection, periorbital swelling ENT exam: Present: normal exam, mucous membranes moist Neck exam: Present: normal inspection. Absent: tenderness, meningismus, lymphadenopathy Respiratory exam: Present: normal lung sounds bilaterally. Absent: respiratory distress, wheezes, rales, rhonchi, stridor Cardiovascular Exam: Present: regular rate, normal rhythm, normal heart sounds. Absent: systolic murmur, diastolic murmur, rubs, gallop, clicks GI/Abdominal exam: Present: soft, tenderness (RLQ), normal bowel sounds. Absent: distended, guarding, rebound, rigid Extremities exam: Present: normal inspection, full ROM, normal capillary refill. Absent: tenderness, pedal edema, joint swelling, calf tenderness Back exam: Present: normal inspection Neurological exam: Present: alert, oriented X3, CN II-XII intact Psychiatric exam: Present: normal affect, normal mood Skin exam: Present: warm, dry, intact, normal color. Absent: rash Course Vital Signs 02/16/19 02/16/19 02/16/19 16:28 18:37 19:18 Temperature 97.7 F 98.1 F Pulse Rate 80 58 L 62 Respiratory 16 18 18 Rate Blood Pressure 137/81 116/62 117/65 O2 Sat by Pulse 100 98 98 Oximetry 02/16/19 20:27 Temperature Pulse Rate 61 Respiratory 18 Rate Blood Pressure 123/67 O2 Sat by Pulse 96 Oximetry - Reevaluation(s) Reevaluation #1: 02/16/19 17:08 medical record is reviewed Medical Decision Making - Medical Decision Making 58 female with nonspecific right lower quadrant abdominal pain. No appendix is visualized, some cecal edema, but no acute findings. Labwork is normal. Patient does have some free fluid in the pelvis possible ovarian cyst rupture. Patient can be discharged - Lab Data Result diagrams: 02/16/19 16:49 02/16/19 16:49 Lab Results 02/16/19 02/16/19 02/16/19 Range/Units 16:49 16:49 16:49 WBC 6.3 (3.8-10.6) k/uL RBC 4.62 (3.80-5.40) m/uL Hgb 13.4 (11.4-16.0) gm/dL Hct 41.5 (34.0-46.0) % MCV 89.8 (80.0-100.0) fL MCH 28.9 (25.0-35.0) pg MCHC 32.2 (31.0-37.0) g/dL RDW 13.3 (11.5-15.5) % Plt Count 288 (150-450) k/uL Neutrophils % 41 % Lymphocytes % 50 % Monocytes % 5 % Eosinophils % 1 % Basophils % 1 % Neutrophils # 2.6 (1.3-7.7) k/uL Lymphocytes # 3.2 (1.0-4.8) k/uL Monocytes # 0.3 (0-1.0) k/uL Eosinophils # 0.1 (0-0.7) k/uL Basophils # 0.0 (0-0.2) k/uL PT (9.0-12.0) sec INR (<1.2) APTT (22.0-30.0) sec Sodium 140 (137-145) mmol/L Potassium 4.2 (3.5-5.1) mmol/L Chloride 104 (98-107) mmol/L Carbon Dioxide 25 (22-30) mmol/L Anion Gap 11 mmol/L BUN 17 (7-17) mg/dL Creatinine 0.66 (0.52-1.04) mg/dL Est GFR (CKD-EPI)AfAm >90 (>60 ml/min/1.73 sqM) Est GFR (CKD-EPI)NonAf >90 (>60 ml/min/1.73 sqM) Glucose 93 (74-99) mg/dL Plasma Lactic Acid Luke 1.6 (0.7-2.0) mmol/L Calcium 10.1 (8.4-10.2) mg/dL Total Bilirubin 0.3 (0.2-1.3) mg/dL AST 29 (14-36) U/L ALT 19 (9-52) U/L Alkaline Phosphatase 83 (38-126) U/L Total Protein 7.5 (6.3-8.2) g/dL Albumin 4.5 (3.5-5.0) g/dL Amylase 88 (30-110) U/L Lipase 240 (23-300) U/L Urine Color Urine Appearance (Clear) Urine pH (5.0-8.0) Ur Specific [place] (1.001-1.035) Urine Protein (Negative) Urine Glucose (UA) (Negative) Urine Ketones (Negative) Urine Blood (Negative) Urine Nitrite (Negative) Urine Bilirubin (Negative) Urine Urobilinogen (<2.0) mg/dL Ur Leukocyte Esterase (Negative) 02/16/19 02/16/19 Range/Units 16:49 19:16 WBC (3.8-10.6) k/uL RBC (3.80-5.40) m/uL Hgb (11.4-16.0) gm/dL Hct (34.0-46.0) % MCV (80.0-100.0) fL MCH (25.0-35.0) pg MCHC (31.0-37.0) g/dL RDW (11.5-15.5) % Plt Count (150-450) k/uL Neutrophils % % Lymphocytes % % Monocytes % % Eosinophils % % Basophils % % Neutrophils # (1.3-7.7) k/uL Lymphocytes # (1.0-4.8) k/uL Monocytes # (0-1.0) k/uL Eosinophils # (0-0.7) k/uL Basophils # (0-0.2) k/uL PT 9.7 (9.0-12.0) sec INR 0.9 (<1.2) APTT 23.9 (22.0-30.0) sec Sodium (137-145) mmol/L Potassium (3.5-5.1) mmol/L Chloride (98-107) mmol/L Carbon Dioxide (22-30) mmol/L Anion Gap mmol/L BUN (7-17) mg/dL Creatinine (0.52-1.04) mg/dL Est GFR (CKD-EPI)AfAm (>60 ml/min/1.73 sqM) Est GFR (CKD-EPI)NonAf (>60 ml/min/1.73 sqM) Glucose (74-99) mg/dL Plasma Lactic Acid Luke (0.7-2.0) mmol/L Calcium (8.4-10.2) mg/dL Total Bilirubin (0.2-1.3) mg/dL AST (14-36) U/L ALT (9-52) U/L Alkaline Phosphatase (38-126) U/L Total Protein (6.3-8.2) g/dL Albumin (3.5-5.0) g/dL Amylase (30-110) U/L Lipase (23-300) U/L Urine Color Light Yellow Urine Appearance Clear (Clear) Urine pH 8.0 (5.0-8.0) Ur Specific [place] 1.033 (1.001-1.035) Urine Protein Negative (Negative) Urine Glucose (UA) Negative (Negative) Urine Ketones Negative (Negative) Urine Blood Negative (Negative) Urine Nitrite Negative (Negative) Urine Bilirubin Negative (Negative) Urine Urobilinogen <2.0 (<2.0) mg/dL Ur Leukocyte Esterase Negative (Negative) - Radiology Data Radiology results: report reviewed (CT head and pelvis is negative for significant acute disease mild free fluid in pelvis), image reviewed Disposition Clinical Impression: Abdominal pain, Ovarian cyst rupture Disposition: HOME SELF-CARE Condition: Good Instructions (If sedation given, give patient instructions): Ovarian Cyst (ED), Abdominal Pain (ED), Ruptured Ovarian Cyst (ED) Is patient prescribed a controlled substance at d/c from ED?: No Referrals: Janeen Celis DO [Primary Care Provider] - 1-2 days
[2019-02-16 17:16] LABS: Basophils % (A) 1 %; Eosinophils # (A) 0.1 k/uL (0-0.7); Eosinophils % (A) 1 %; HCT 41.5 % (34.0-46.0); HGB 13.4 gm/dL (11.4-16.0); Lymphocytes # (A) 3.2 k/uL (1.0-4.8); Lymphocytes % (A) 50 %; MCH 28.9 pg (25.0-35.0); MCHC 32.2 g/dL (31.0-37.0); MCV 89.8 fL (80.0-100.0); Mean Platelet Volume 7.2; Monocytes # (A) 0.3 k/uL (0-1.0); Monocytes % (A) 5 %; Neutrophils # (A) 2.6 k/uL (1.3-7.7); Neutrophils % (A) 41 %; Platelet Count 288 k/uL (150-450); RBC 4.62 m/uL (3.80-5.40); RDW 13.3 % (11.5-15.5); WBC 6.3 k/uL (3.8-10.6)
[2019-02-16 17:25] LABS: ALT 19 U/L (9-52); AST 29 U/L (14-36); African American GFR (CKD) >90 (>60 ml/min/1.73 sqM); Albumin 4.5 g/dL (3.5-5.0); Alkaline Phosphatase 83 U/L (38-126); Amylase 88 U/L (30-110); Anion Gap 11 mmol/L; Blood Urea Nitrogen 17 mg/dL (7-17); Calcium 10.1 mg/dL (8.4-10.2); Carbon Dioxide 25 mmol/L (22-30); Chloride 104 mmol/L (98-107); Glucose 93 mg/dL (74-99); INR 0.9 (<1.2); Partial Thromboplastin Time 23.9 sec (22.0-30.0); Potassium 4.2 mmol/L (3.5-5.1); Prothrombin Time 9.7 sec (9.0-12.0); Sodium 140 mmol/L (137-145); Total Bilirubin 0.3 mg/dL (0.2-1.3); Total Protein 7.5 g/dL (6.3-8.2)
[2019-02-16 18:38] VITALS: RESP 18
[2019-02-16 19:19] VITALS: TEMP 98.1
[2019-02-16 19:36] LABS: Appearance,Urine Clear (Clear); Bilirubin,Urine Negative (Negative); Blood,Urine Negative (Negative); Color,Urine Light Yellow; Glucose,Urine (UA) Negative (Negative); Ketones,Urine Negative (Negative); Leukocyte Esterase,Urine Negative (Negative); Nitrite,Urine Negative (Negative); Protein,Urine Negative (Negative); Specific Gravity,Urine 1.033 (1.001-1.035); Urobilinogen,Urine <2.0 mg/dL (<2.0)
--- NOTE | 2019-02-16 20:09 | CT ---
EXAMINATION TYPE: CT abdomen pelvis w con DATE OF EXAM: 02/16/2019 COMPARISON: None HISTORY: RLQ pain CT DLP: 608.1 mGycm. Automated exposure control for dose reduction was used. TECHNIQUE: Helical acquisition of images was performed from the lung bases through the pelvis. CONTRAST: Performed without Oral Contrast and with IV Contrast, patient injected with 100 mL of Isovu e 300. FINDINGS: LUNG BASES: No significant abnormality is appreciated. LIVER/GB: No significant abnormality is appreciated. 3 cm simple hepatic cyst is noted in the upper p osterior segment of the right hepatic lobe. PANCREAS: No significant abnormality is seen. SPLEEN: No significant abnormality is seen. ADRENALS: No significant abnormality is seen. KIDNEYS: No significant abnormality is seen. Peritoneal cavity: No pneumoperitoneum. Only minimal fluid dependently within the pelvis cul-de-sac, right greater than left. RETROPERITONEAL ADENOPATHY: None visualized REPRODUCTIVE ORGANS: No significant abnormality is seen URINARY BLADDER: No significant abnormality is seen. Mild urinary bladder distention is noted. PELVIC ADENOPATHY: None visualized. OSSEOUS STRUCTURES: No significant abnormality is seen. BOWEL: The cecum measures 7 cm in diameter but is otherwise unremarkable. There is no acute inflamma tory process in the right lower quadrant. No herniation through the anterior abdominal wall. Remainde r of the bowel examination of the abdomen and pelvis unremarkable. There is a mildly prominent pancol onic stool volume present. OTHER: No acute vascular findings. IMPRESSION: NO DEFINITE ACUTE PROCESS. Nonspecific findings include top normal cecal diameter; minimal dependent fluid within the pelvic cul -de-sac right greater than left; mild urinary bladder distention noted.
[2019-02-16 20:28] VITALS: BP 123/67; PULSE 61
[2019-02-16] MEDS ORDERED: ACET/COD 300 MG/30 MG STARTER PACK 6 TAB BTL PO STA (20:37)
[2019-02-16] MEDS ORDERED: Acetaminophen-Codeine 300-30mg TAB PO STA (20:37)
== END 2019-02-16 20:51 | disposition home or self-care (01) ==
LOC: EC 16:24
DX: N83.201 Unspecified ovarian cyst, right side (principal); K21.9 Gastro-esophageal reflux disease without esophagitis; E07.9 Disorder of thyroid, unspecified; Z79.890 Hormone replacement therapy; Z79.899 Other long term (current) drug therapy; Z88.2 Allergy status to sulfonamides; Z88.5 Allergy status to narcotic agent; Z91.030 Bee allergy status; Z98.84 Bariatric surgery status; Z90.49 Acquired absence of other specified parts of digestive tract
CPT/HCPCS: 36415; 80053; 82150; 83605; 83690; 85025; 85610; 85730; 81003; 87086; 74177; 99284; 96374; 96375; 96361 ×3; J2405; J1885; Q9967

== ENCOUNTER 2019-04-15 08:17 | Observation (INO) | payer BC ==
[2019-04-12 10:45] VITALS: BMI 22.8
[~2019-04-15 08:17] MED LIST changes: +HEPARIN SODIUM,PORCINE 5,000 UNIT/ML 1 ML VIAL SQ ONE; -LACTATED RINGERS 1,000 ML IV SCH; -LIDOCAINE 1% 20 ML VIAL (10MG/ML) FOR IV START INTRADERMA PRN
[2019-04-15] MEDS ORDERED: LIDOCAINE 1% 20 ML VIAL (10MG/ML) FOR IV START INTRADERMA ONE (08:52)
[2019-04-15] MEDS: LACTATED RINGERS 1,000 ML IV SCH (08:53)
[2019-04-15] MEDS ORDERED: ONDANSETRON 4 MG/2 ML VIAL IVP ONE (09:02)
[2019-04-15] MEDS ORDERED: DEXAMETHASONE SOD PHOSPHATE 10 MG/ML 1 ML VIAL IV ONE (09:02)
[2019-04-15] MEDS ORDERED: fentaNYL (PF) 50 MCG/ML 2 ML AMP IVP ONE ×3 (09:16→13:00)
[2019-04-15] MEDS ORDERED: MIDAZOLAM PF (FBP) 2 MG/2 ML VIAL IVP ONE (09:16)
[2019-04-15 09:22] LABS: Glucose,Whole Blood 81 mg/dL (75-99)
--- NOTE | 2019-04-15 09:36 | P.GSHP ---
History of Present Illness H&P Date: 04/15/19 Chief Complaint: Panniculus This a 58-year-old female who presents today for panniculectomy. Patient has been well detailed on the procedure. She understands the risks and benefits of procedure. She is aware that is not a cosmetic procedure however a procedure to remove redundant skin and fat. She is aware for possible need for revisional surgery for cosmesis. She is aware of the risk of skin infection seroma, wound hematoma Past Medical History Past Medical History: Asthma, GERD/Reflux, Osteoarthritis (OA), Thyroid Disorder Additional Past Medical History / Comment(s): Wgt loss 100# following Bariatric Surg. Hypoglycemic. Osteoporosis. Abd hernias, Panniculus. History of Any Multi-Drug Resistant Organisms: None Reported Past Surgical History: Bariatric Surgery, Section, Cholecystectomy, Hysterectomy, Orthopedic Surgery, Tonsillectomy Additional Past Surgical History / Comment(s): Lt knee arthroscopy, laparoscopy exams w/ anesthesia x3, lap band /later revision, lt foot surgery x 2, right foot surgery, sinus surgery, surgery for fx nose, lap band removed April 2016. Gastric sleeve 06/28/16. Rt shoulder 06/25/18, 10/2018 Manipulation shoulder. Past Anesthesia/Blood Transfusion Reactions: No Reported Reaction Smoking Status: Never smoker - Past Family History Mother Family Medical History: Diabetes Mellitus Father Family Medical History: Cancer Additional Family Medical History / Comment(s): Colon cancer. Brother(s) Family Medical History: Deep Vein Thrombosis (DVT) Medications and Allergies Home Medications Medication Instructions Recorded Confirmed Type Thyroid,Pork [[place] Thyroid] 60 mg PO QAM 05/10/15 04/12/19 History L.acidoph,Paracasei, B.lactis 1 cap PO QAM 06/21/16 04/15/19 History [Probiotic] FLUoxetine HCL [PROzac] 10 mg PO DAILY 12/09/16 04/15/19 History EPINEPHrine (Auto Inject) [Epipen] 0.3 mg IM ONCE PRN 10/28/18 04/15/19 History Multivitamin [Multivitamins Adult 2 tab PO DAILY 10/28/18 04/12/19 History Gummies] Pantoprazole Sodium [Protonix] 40 mg PO DAILY 02/16/19 04/12/19 History D-Mulsion 2 drop PO DAILY 04/12/19 History Teriparatide [[place]] 20 mcg SQ DAILY 04/12/19 04/15/19 History Allergies Allergy/AdvReac Type Severity Reaction Status Date / Time bee venom protein (honey bee) Allergy Anaphylaxis Verified 04/12/19 10:19 hydromorphone Allergy Anaphylaxis Verified 04/12/19 10:19 morphine Allergy Anaphylaxis Verified 04/12/19 10:19 Sulfa (Sulfonamide Allergy Rash/Hives Verified 04/12/19 10:19 Antibiotics) Surgical - Exam Vital Signs Temp Pulse Resp BP Pulse Ox 98.0 F 69 18 119/69 100 04/15/19 08:40 04/15/19 08:40 04/15/19 08:40 04/15/19 08:40 04/15/19 08:40 - General well developed, well nourished, no distress, moderate distress - Eyes PERRL - ENT normal pinna - Neck no masses - Respiratory normal expansion - Cardiovascular Rhythm: regular - Abdomen Well-formed panniculus with evidence of chronic skin irritation Low midline Dez. There appears to be a very small incisional hernia. Abdomen: soft, non tender Assessment and Plan Assessment: Panniculus. We'll perform panniculectomy.
[2019-04-15] MEDS ORDERED: ROPIVACAINE 5 MG/ML 30 ML VIAL ONE (10:18)
[2019-04-15] MEDS ORDERED: KETOROLAC 30 MG/ML 1 ML VIAL ONE (10:18)
[2019-04-15] MEDS ORDERED: DEXAMETHASONE SOD PHOSPHATE 4 MG/ML 1 ML VIAL ONE (10:18)
[2019-04-15] MEDS ORDERED: MIDAZOLAM 2 MG/2 ML VIAL ONE (10:18)
[2019-04-15] MEDS ORDERED: PROPOFOL 10 MG/ML 20 ML VIAL IV ONE (10:18)
[2019-04-15] MEDS ORDERED: PHENYLEPHRINE-0.9% NACL SYG 1 MG/10 ML SYRINGE ONE (10:18)
[2019-04-15] MEDS ORDERED: KETAMINE 10 MG/ML 20 ML VIAL ONE (10:18)
[2019-04-15] MEDS ORDERED: ROCURONIUM BROMIDE 10 MG/ML 10 ML VIAL IV ONE (10:18)
[2019-04-15] MEDS ORDERED: fentaNYL (PF) 50 MCG/ML 2 ML AMP ONE (10:18)
[2019-04-15] MEDS ORDERED: LACTATED RINGERS 1,000 ML IV ONE ×2 (11:04→12:14)
[2019-04-15] MEDS ORDERED: HYDROmorphone 1 MG/ML 1 ML SYRINGE IVP PRN (12:13)
--- NOTE | 2019-04-15 12:13 | P.OP ---
Date of Procedure: 04/15/19 Preoperative Diagnosis: Panniculus Postoperative Diagnosis: Panniculus Procedure(s) Performed: Panniculectomy Anesthesia: STEFANO WHYTE Surgeon: Maxime Jean Estimated Blood Loss (ml): 50 Pathology: other (Skin for disposal) Condition: stable Description of Procedure: PROCEDURE: The patient was placed on the operating table in supine position and received general anesthetic. The abdomen was prepped and draped in the usual sterile fashion. The lower skin incision was then made after the skin was claudette ed with a marker. The incision ran from the pubic area to the level of the anterosuperior iliac spine. Using blunt and sharp dissection and electrocautery the subcutaneous tissues were then dissected down to the level of the fascia external oblique. Next, a fernando shaped incision was made around the umbilicus and the umbilicus was then dissected down to the level of the fascia external oblique. Care was taken to ensure that the umbilical stalk was wide enough in order to maintain viability of the umbilicus. After the umbilicus was dissected a 0 Vicryl suture was used to orientate the umbilicus. The suture was placed at the 12 o'clock position of the umbilicus. Following this the dissection was then made from the inferior pannicular incision cephalad. The xiphoid and costal margins were the limits of the dissection. Several small perforating vessels were ligated and cautery was used to maintain hemostasis. Once the dissection was performed the panniculus was then divided in the midline from the level of the umbilicus towards the pubic area. Downward and lateral traction was then placed on the abdominal wall and the skin was suitably marked for transection of the umbilicus. The skin was then incised and the Bovie was used for dissection of the pannicular flap. Next, three 10-[place] MIRANDA drains were placed in the wound and brought out through separate stab incisions at the level of the pubic area. The drains were secured to the skin using 3-0 nylon. After the MIRANDA drains were secured, Micah's fascia was closed with interrupted 0 Vicryl sutures and then the skin was closed with running 3-0 Monocryl sutures. Prior to closure of the abdominal wall care was taken to ensure that both the abdominal wall and the abdominal wall flap were hemostatic. Next, the umbilicus was reattached to the abdominal wall. A marking line was made across the top of the iliac crest and this line intercepted with the midline abdominal wall line that had been previously made in the preoperative hold area. A small semicircular U-shaped incision was created at the intersection of the two lines and the umbilicus was brought up through this incision. The umbilicus was then trimmed and secured to the skin using 3-0 Monocryl sutures. At this point the drains were placed to suction. The abdomen was cleaned Dermabond was placed over top of the incisions. Abdominal binder was then placed. The patient tolerated the procedure well. The patient was sent to recovery room in stable condition.
[2019-04-15] MEDS ORDERED: ACETAMINOPHEN TAB 325 MG TAB PO PRN (12:14)
[2019-04-15] MEDS ORDERED: ONDANSETRON 4 MG/2 ML VIAL IVP PRN (12:14)
[2019-04-15] MEDS ORDERED: NALOXONE 0.4 MG/ML 1 ML VIAL IV PRN (12:14)
--- NOTE | 2019-04-15 12:38 | P.ANPRN ---
Procedure Note - Anesthesia - Nerve Block Performed Bilateral Transversus Abdominis Single Time Out Performed: Yes Date of Procedure: 04/15/19 Procedure Start Time: :13 Procedure Stop Time: : Location of Patient Procedure: PreOp Indication: Acute Post-Operative Pain, Requested by Surgeon Sedation Type: Sedate with meaningful contact maintained Position: Supine Catheter: None Needle Types: [place] Needle Gauge: 21 Ultrasound used to visualize needle placement: Yes Ultrasound used to observe medication spread: Yes Injectate: Other (see comment) ((ropivacaine 0.375%- 15ml + decadron 2mg) : per side) Blood Aspirated: No Pain Paresthesia on Injection Noted: No Resistance on Injection: Normal Image Stored and Saved: Yes Events: Uneventful and Well Tolerated
[2019-04-15] MEDS: KETOROLAC 30 MG/ML 1 ML VIAL IVP SCH ×2 (14:08→20:21)
[2019-04-15] MEDS: DEXTROSE 5%-0.9% NACL 1,000 ML IV SCH ×2 (14:09→23:11)
[2019-04-15] MEDS: ONDANSETRON 4 MG/2 ML VIAL IVP PRN (15:18)
[2019-04-15] MEDS: HYDROcodone/APAP 5-325MG 1 EACH TAB PO PRN ×2 (16:59→23:11)
[2019-04-16] MEDS: ONDANSETRON 4 MG/2 ML VIAL IVP PRN ×2 (00:01→08:12)
[2019-04-16] MEDS: KETOROLAC 30 MG/ML 1 ML VIAL IVP SCH ×4 (02:23→19:46)
[2019-04-16] MEDS: DEXTROSE 5%-0.9% NACL 1,000 ML IV SCH ×3 (06:40→19:55)
[2019-04-16] MEDS: HYDROcodone/APAP 5-325MG 1 EACH TAB PO PRN ×5 (06:41→23:02)
[2019-04-16] MEDS: ENOXAPARIN 40 MG/0.4 ML SYRINGE SQ SCH (08:13)
[2019-04-16] MEDS: THYROID, PORK 30 MG TAB PO SCH (08:35)
[2019-04-16] MEDS: FLUoxetine HCL 10 MG CAP PO SCH (08:35)
--- NOTE | 2019-04-16 10:13 | P.CONS ---
History of Present Illness - Reason for Consult Consult date: 04/16/19 medical management Requesting physician: Maxime Jean - Chief Complaint abdominal hernia - History of Present Illness Shahla Stover is a 58 yo F with hx gastric sleeve, GERD, abdominal hernias, depression who is POD#1 after hernia repair and panniculectomy. She is overall feeling well but complains of continued abdominal pain and nausea today. Describes her pain as burning and is controlled with norco. Pt denies vomiting, flatus or BM. MIRANDA bulbs with scant serosanguinous drainage. She has not yet ambulated since surgery. Review of Systems All systems: negative Constitutional: Denies chills, Denies fever Eyes: denies blurred vision, denies pain Ears, nose, mouth and throat: Denies headache, Denies sore throat Cardiovascular: Denies chest pain, Denies shortness of breath Respiratory: Denies cough Gastrointestinal: Reports abdominal pain, Reports belching, Reports loss of appetite, Reports nausea, Denies diarrhea, Denies vomiting Genitourinary: Denies dysuria, Denies hematuria Musculoskeletal: Denies myalgias Integumentary: Denies pruritus, Denies rash Neurological: Denies numbness, Denies weakness Psychiatric: Denies anxiety, Denies depression Endocrine: Denies fatigue, Denies weight change Past Medical History Past Medical History: Asthma, GERD/Reflux, Osteoarthritis (OA), Thyroid Disorder Additional Past Medical History / Comment(s): Wgt loss 100# following Bariatric Surg. Hypoglycemic. Osteoporosis. Abd hernias, Panniculus. History of Any Multi-Drug Resistant Organisms: None Reported Past Surgical History: Bariatric Surgery, Section, Cholecystectomy, Hysterectomy, Orthopedic Surgery, Tonsillectomy Additional Past Surgical History / Comment(s): Lt knee arthroscopy, laparoscopy exams w/ anesthesia x3, lap band /later revision, lt foot surgery x 2, right foot surgery, sinus surgery, surgery for fx nose, lap band removed April 2016. Gastric sleeve 06/28/16. Rt shoulder 06/25/18, 10/2018 Manipulation shoulder. Past Anesthesia/Blood Transfusion Reactions: No Reported Reaction Past Psychological History: No Psychological Hx Reported Smoking Status: Never smoker Past Alcohol Use History: None Reported Past Drug Use History: None Reported - Past Family History Mother Family Medical History: Diabetes Mellitus Father Family Medical History: Cancer Additional Family Medical History / Comment(s): Colon cancer. Brother(s) Family Medical History: Deep Vein Thrombosis (DVT) Medications and Allergies Home Medications Medication Instructions Recorded Confirmed Type Thyroid,Pork [[place] Thyroid] 60 mg PO QAM 05/10/15 04/12/19 History L.acidoph,Paracasei, B.lactis 1 cap PO QAM 06/21/16 04/15/19 History [Probiotic] FLUoxetine HCL [PROzac] 10 mg PO DAILY 12/09/16 04/15/19 History EPINEPHrine (Auto Inject) [Epipen] 0.3 mg IM ONCE PRN 10/28/18 04/15/19 History Multivitamin [Multivitamins Adult 2 tab PO DAILY 10/28/18 04/12/19 History Gummies] Pantoprazole Sodium [Protonix] 40 mg PO DAILY 02/16/19 04/12/19 History D-Mulsion 2 drop PO DAILY 04/12/19 History Teriparatide [Forteo] 20 mcg SQ DAILY 04/12/19 04/15/19 History Allergies Allergy/AdvReac Type Severity Reaction Status Date / Time bee venom protein (honey bee) Allergy Anaphylaxis Verified 04/12/19 10:19 hydromorphone Allergy Anaphylaxis Verified 04/12/19 10:19 morphine Allergy Anaphylaxis Verified 04/12/19 10:19 Sulfa (Sulfonamide Allergy Rash/Hives Verified 04/12/19 10:19 Antibiotics) Physical Exam Vitals: Vital Signs Temp Pulse Resp BP Pulse Ox 04/16/19 09:00 98 F 60 18 80/46 100 04/16/19 02:40 97.2 F L 76 18 93/51 95 04/16/19 00:00 67 18 04/15/19 20:32 60 19 04/15/19 19:57 97.9 F 60 19 95/52 97 04/15/19 17:50 74 16 93/50 100 04/15/19 17:48 72 16 89/47 100 04/15/19 16:50 68 16 96/56 100 04/15/19 14:35 61 16 101/63 100 04/15/19 14:20 71 16 96/59 100 04/15/19 14:05 98.1 F 59 L 16 113/61 100 04/15/19 13:16 62 18 124/66 99 04/15/19 13:01 62 16 122/61 99 04/15/19 12:46 72 20 114/58 97 04/15/19 12:31 98.9 F 92 20 130/72 97 Intake and Output 04/15/19 04/16/19 04/16/19 22:59 06:59 14:59 Intake Total 75 Output Total 295 150 Balance -295 -150 75 Intake: Oral 75 Output: Drainage 95 a 40 b 55 Urine 200 150 Other: Voiding Method Toilet Toilet General: well nourished, well developed, NAD. Vitals reviewed Eyes: PERRL, EOMI, conjunctiva normal HENT: normocephalic, mucus membranes moist Neck: supple, no JVD Lungs: normal respiratory effort, no wheezes or rales CV: Regular rate and rhythm, no murmur. Peripheral pulses 2+ Abdomen: soft, nondistended, no organomegaly. Generalized TTP. Approx 20 ml serosanguinous drainage in MIRANDA bulbs Lymph: no cervical or axillary LAD Skin: warm and dry. Assessment and Plan (1) S/P panniculectomy Current Visit: Yes Status: Acute Code(s): Z98.890 - OTHER SPECIFIED POSTPROCEDURAL STATES SNOMED Code(s): 026455584 (2) Abdominal hernia Current Visit: Yes Status: Acute Code(s): K46.9 - UNSPECIFIED ABDOMINAL HERNIA WITHOUT OBSTRUCTION OR GANGRENE SNOMED Code(s): 63679430 (3) Major depression Current Visit: Yes Status: Acute Code(s): F32.9 - MAJOR DEPRESSIVE DISORDER, SINGLE EPISODE, UNSPECIFIED SNOMED Code(s): 158523285 (4) Acquired hypothyroidism Current Visit: Yes Status: Acute Code(s): E03.9 - HYPOTHYROIDISM, UNSPECIFIED SNOMED Code(s): 429431664 (5) S/P hernia repair Current Visit: Yes Status: Acute Code(s): Z98.890 - OTHER SPECIFIED POSTPROCEDURAL STATES; Z87.19 - PERSONAL HISTORY OF OTHER DISEASES OF THE DIGESTIVE SYSTEM SNOMED Code(s): 36503098839650 Plan: 1. S/p hernia repair and panniculectomy. Pain control. Encourage early ambulation. Diet per primary. Will check CBC and BMP today 2. Hypothyroidism. Resume armor thyroid today 3. Depression. Resume prozac DVT prophylaxis lovenox
[2019-04-16 10:56] LABS: Basophils % (A) 0 %; Eosinophils % (A) 0 %; HCT 32.4 % (34.0-46.0); HGB 10.5 gm/dL (11.4-16.0); Lymphocytes # (A) 1.8 k/uL (1.0-4.8); Lymphocytes % (A) 25 %; MCH 30.1 pg (25.0-35.0); MCHC 32.3 g/dL (31.0-37.0); Mean Platelet Volume 6.2; Monocytes # (A) 0.4 k/uL (0-1.0); Monocytes % (A) 5 %; Neutrophils # (A) 5.1 k/uL (1.3-7.7); Neutrophils % (A) 68 %; Platelet Count 218 k/uL (150-450); RBC 3.48 m/uL (3.80-5.40); RDW 12.7 % (11.5-15.5); WBC 7.4 k/uL (3.8-10.6)
[2019-04-16 11:09] LABS: African American GFR (CKD) >90 (>60 ml/min/1.73 sqM); Anion Gap 4 mmol/L; Blood Urea Nitrogen 14 mg/dL (7-17); Calcium 7.9 mg/dL (8.4-10.2); Carbon Dioxide 29 mmol/L (22-30); Chloride 106 mmol/L (98-107); Glucose 104 mg/dL (74-99); Potassium 3.7 mmol/L (3.5-5.1); Sodium 139 mmol/L (137-145)
[2019-04-16] MEDS ORDERED: SODIUM CHLORIDE 0.9% 1,000 ML IV ONE (11:33)
[2019-04-16] MEDS ORDERED: SODIUM CHLORIDE 0.9% 1,000 ML IV SCH (13:30)
--- NOTE | 2019-04-16 13:31 | P.PN ---
Subjective Progress Note Date: 04/16/19 CHIEF COMPLAINT: Panniculectomy HISTORY OF PRESENT ILLNESS: A 58-year-old female who is status post panniculectomy. Postop day #1. Patient reports her pain is tolerable on oral medications. MIRANDA drains with serosanguineous drainage. Patient reports she has only been able to walk to the bathroom and back to her bed. She has not ambulated in the hallway. She is tolerating clear liquid diet. Patient hypotensive this morning with a systolic blood pressure in the 80s. Hemoglobin 10.5. PHYSICAL EXAM: VITAL SIGNS: Reviewed. GENERAL: Well-developed in no acute distress. HEENT: No sclera icterus. Extraocular movements grossly intact. Moist buccal mucosa. Head is atraumatic, normocephalic. ABDOMEN: Soft. Nondistended. Incision clean dry and intact. Abdominal binder noted. MIRANDA drains with serosanguineous drainage. NEUROLOGIC: Alert and oriented. Cranial nerves II through XII grossly intact. ASSESSMENT: 1. Status post panniculectomy PLAN: 1. Advance diet 2. Pain control 3. Monitor blood pressure 4. 1 L fluid bolus. Continue maintenance IV fluids at 125 mL an hour. 5. We will hold discharge today. Patient may be discharged home tomorrow morning if she remains stable and blood pressure improves. Nurse practitioner note has been reviewed by physician. Signing provider agrees with the documented findings, assessment, and plan of care. Objective - Vital Signs Vital signs: Vital Signs Temp 98 F 04/16/19 09:00 Pulse 62 04/16/19 13:07 Resp 18 04/16/19 09:00 BP 88/52 04/16/19 13:07 Pulse Ox 100 04/16/19 09:00 Intake & Output 04/15/19 04/16/19 04/16/19 18:59 06:59 18:59 Intake Total 1700 75 Output Total 90 375 Balance 1610 -375 75 Weight 59.421 kg Intake: IV 1700 Oral 75 Output: Drainage 70 25 a 30 10 b 40 15 Urine 350 Estimated Blood Loss 20 Other: Voiding Method Toilet - Labs CBC & Chem 7: 04/16/19 10:24 04/16/19 10:24 Labs: Abnormal Lab Results - Last 24 Hours (Table) 04/16/19 04/16/19 Range/Units 10:24 10:24 RBC 3.48 L (3.80-5.40) m/uL Hgb 10.5 L (11.4-16.0) gm/dL Hct 32.4 L (34.0-46.0) % Glucose 104 H (74-99) mg/dL Calcium 7.9 L (8.4-10.2) mg/dL
[2019-04-16 16:26] LABS: HCT 32.2 % (34.0-46.0); HGB 9.9 gm/dL (11.4-16.0); MCH 28.8 pg (25.0-35.0); MCHC 30.7 g/dL (31.0-37.0); Mean Platelet Volume 6.9; Platelet Count 202 k/uL (150-450); RBC 3.43 m/uL (3.80-5.40); RDW 13.1 % (11.5-15.5); WBC 7.1 k/uL (3.8-10.6)
[2019-04-16] MEDS: LACTATED RINGERS 1,000 ML IV SCH (19:21)
[2019-04-16] MEDS: diphenhydrAMINE 50 MG/ML 1 ML VIAL IVP PRN (20:46)
[2019-04-17] MEDS: KETOROLAC 30 MG/ML 1 ML VIAL IVP SCH ×4 (01:39→20:19)
[2019-04-17] MEDS: HYDROcodone/APAP 5-325MG 1 EACH TAB PO PRN ×3 (03:53→12:11)
[2019-04-17] MEDS: DEXTROSE 5%-0.9% NACL 1,000 ML IV SCH ×2 (03:53→15:42)
[2019-04-17] MEDS: diphenhydrAMINE 50 MG/ML 1 ML VIAL IVP PRN (03:54)
[2019-04-17 07:31] LABS: HCT 31.2 % (34.0-46.0); HGB 9.8 gm/dL (11.4-16.0); Hypochromasia Slight; MCH 29.7 pg (25.0-35.0); MCHC 31.4 g/dL (31.0-37.0); MCV 94.7 fL (80.0-100.0); Mean Platelet Volume 6.4; Platelet Count 184 k/uL (150-450); RBC 3.29 m/uL (3.80-5.40); RDW 12.9 % (11.5-15.5); WBC 5.4 k/uL (3.8-10.6)
[2019-04-17] MEDS: ENOXAPARIN 40 MG/0.4 ML SYRINGE SQ SCH (08:00)
[2019-04-17] MEDS: PANTOPRAZOLE 40 MG/10 ML VIAL IVP SCH (08:02)
[2019-04-17] MEDS: FLUoxetine HCL 10 MG CAP PO SCH (08:02)
[2019-04-17] MEDS: THYROID, PORK 30 MG TAB PO SCH (08:02)
[2019-04-17 14:10] LABS: African American GFR (CKD) >90 (>60 ml/min/1.73 sqM); Anion Gap 2 mmol/L; Blood Urea Nitrogen 10 mg/dL (7-17); Calcium 7.9 mg/dL (8.4-10.2); Carbon Dioxide 27 mmol/L (22-30); Chloride 112 mmol/L (98-107); Glucose 93 mg/dL (74-99); Potassium 4.5 mmol/L (3.5-5.1); Sodium 141 mmol/L (137-145)
[2019-04-17] MEDS ORDERED: SODIUM CHLORIDE 0.9% 2,000 ML IV ONE (14:16)
[2019-04-17] MEDS ORDERED: ACETAMINOPHEN TAB 500 MG TAB PO PRN (14:18)
--- NOTE | 2019-04-17 14:21 | P.PN ---
Subjective Progress Note Date: 04/17/19 CHIEF COMPLAINT: Panniculitis HISTORY OF PRESENT ILLNESS: The patient is a 58-year-old female status post panniculectomy, 04/15/19. She is POD 2. She reports dark urine and dizziness upon walking. She also has increased difficulty with breathing. Since surgery, no incentive spirometry. She usually drinks 1 gallon of water daily and is barely getting 1/2 the amount of her usual fluids. She has hypotension coinciding with her norco tablets. She reports past history of over sensitivity to narcotics with hypotension and respiratory arrest. ROS: No reports of nausea and vomiting. No fevers or chills. No new chest pain. No productive sputum PHYSICAL EXAM: VITAL SIGNS: Reviewed CONSTITUTIONAL: Well developed and in no acute distress. EYES: Conjuctivae without sclera icterus. Extraocular movements grossly intact. HEAD, EARS, NOSE, THROAT: Moist buccal mucosa. Head is atraumatic, normoce phalic. Hears conversational speech. No nasal drainage. NECK: Supple. No thyroidomegaly. RESPIRATORY: Non-labored respirations and equal bilateral excursions. CARDIOVASCULAR: Palpable 2+ radial pulses. Regular rate. Regular rhythm. ABDOMEN: Incisions clean dry and intact. Abdominal binder present MUSCULOSKELETAL: No gross deformity of the lower extremities noted. No clubbing. No cyanosis. SKIN: Good skin turgor. Well perfused. NEUROLOGIC: Cranial nerves I through XII grossly intact. No focal or lateralizing signs. PSYCH: Appropriate affect. Alert and oriented to person, place and time. CLINCAL LABS: White blood cell count normal ASSESSMENT: 1. Panniculitis PLAN: 1. Recommend IV fluid bolus 2 liter 2. Recommend drinking broth to replenish sodium and electrolytes 3. Change dressings along MIRANDA 4. Stop narcotics and switch to tylenol and toradol 5. Recommend incentive spirometer for atelectasis Objective - Vital Signs Vital signs: Vital Signs Temp 98 F 04/17/19 08:10 Pulse 68 04/17/19 13:28 Resp 16 04/17/19 13:28 BP 116/54 04/17/19 13:28 Pulse Ox 96 04/17/19 13:28 Intake & Output 04/16/19 04/17/19 04/17/19 18:59 06:59 18:59 Intake Total 2575 2450 Output Total 373 815 550 Balance 2202 1635 -550 Intake: Intake, IV Titration 1999 2000 Amount Dextrose 5%-0.9% NaCl 1, 1000 2000 000 ml @ 125 mls/hr IV . Q8H [facility] Rx#:[id number] Sodium Chloride 0.9% 1, 1000 000 ml @ 100 mls/hr IV . Q10H [facility] Rx#:[id number] Oral 575 450 Output: Drainage 48 40 50 a 18 15 20 b 30 25 30 Urine 325 775 500 Other: Voiding Method Toilet Toilet # Voids 1 - Labs CBC & Chem 7: 04/17/19 07:13 04/17/19 07:00 Labs: Abnormal Lab Results - Last 24 Hours (Table) 04/16/19 04/17/19 04/17/19 Range/Units 16:05 07:00 07:13 RBC 3.43 L 3.29 L (3.80-5.40) m/uL Hgb 9.9 L 9.8 L (11.4-16.0) gm/dL Hct 32.2 L 31.2 L (34.0-46.0) % MCHC 30.7 L (31.0-37.0) g/dL Chloride 112 H (98-107) mmol/L Calcium 7.9 L (8.4-10.2) mg/dL Assessment and Plan (1) Panniculitis Status: Acute Code(s): M79.3 - PANNICULITIS, UNSPECIFIED SNOMED Code(s): 37052614 (2) Hypotension after procedure Status: Acute Code(s): I95.81 - POSTPROCEDURAL HYPOTENSION SNOMED Code(s): 56400831044949007 (3) Dehydration Status: Acute Code(s): E86.0 - DEHYDRATION SNOMED Code(s): 52594713 (4) Depressive disorder Status: Acute Code(s): F32.9 - MAJOR DEPRESSIVE DISORDER, SINGLE EPISODE, UNSPECIFIED SNOMED Code(s): 21544474 (5) Atelectasis Status: Acute Code(s): J98.11 - ATELECTASIS SNOMED Code(s): 10458510 (6) S/P panniculectomy Status: Acute Code(s): Z98.890 - OTHER SPECIFIED POSTPROCEDURAL STATES SNOMED Code(s): 351712751
--- NOTE | 2019-04-17 14:21 | P.PN ---
Subjective Progress Note Date: 04/17/19 Principal diagnosis: Status post abdominal hernia repair and panniculectomy - postop day 2 Shahla Stover is a 58 yo F with hx gastric sleeve, GERD, abdominal hernias, depression who is POD#2 after hernia repair and panniculectomy. Today the patient is lying in bed states that she has been feeling dizzy. More dizzy when she starts to get out of the bed. Patient has been getting [place] for her abdominal pain. Patient denies having any nausea or vomiting. She complains of mild difficulty in breathing. No chest pain. No cough. No fevers chills or rigors overnight. No dysuria or hematuria. She has been passing flatus but did not have a bowel movement. On reviewing her vitals , patient's blood pressure has been running on the lower side this morning it was as low as 89/52 and she felt dizzy. The attending intervention the patient's blood pressure went up to 1 16 x 54. Patient has been saturating at 95% on room air. Her heart rate has been between 60s to 70s. Active Medications Acetaminophen (Tylenol Tab) 650 mg PO Q6HR PRN PRN Reason: Mild Pain or Fever >= 100.5 Hydrocodone Bitart/Acetaminophen ([place] 5-325) 2 each PO Q4H PRN PRN Reason: Moderate to Severe Pain Last Admin: 04/17/19 12:11 Dose: 2 each Documented by: Diphenhydramine HCl (Benadryl) 25 mg IVP Q6HR PRN PRN Reason: Itching Last Admin: 04/17/19 03:54 Dose: 25 mg Documented by: Enoxaparin Sodium (Lovenox) 40 mg SQ DAILY [facility] Last Admin: 04/17/19 08:00 Dose: 40 mg Documented by: Fluoxetine HCl (Prozac) 10 mg PO DAILY [facility] Last Admin: 04/17/19 08:02 Dose: 10 mg Documented by: Naloxone HCl (Narcan) 0.2 mg IV Q2M PRN PRN Reason: Opioid Reversal Ondansetron HCl (Zofran) 4 mg IVP Q8HR PRN PRN Reason: Nausea And Vomiting Last Admin: 04/16/19 08:12 Dose: 4 mg Documented by: Ondansetron HCl (Zofran) 4 mg IVP Q8HR PRN PRN Reason: Nausea And Vomiting Pantoprazole Sodium (Protonix) 40 mg IVP DAILY [facility] Last Admin: 04/17/19 08:02 Dose: 40 mg Documented by: Thyroid ([place] Thyroid) 60 mg PO QAM [facility] Last Admin: 04/17/19 08:02 Dose: 60 mg Documented by: Objective - Vital Signs Vital signs: Vital Signs Temp 98 F 04/17/19 08:10 Pulse 68 04/17/19 13:28 Resp 16 04/17/19 13:28 BP 116/54 04/17/19 13:28 Pulse Ox 96 04/17/19 13:28 Intake & Output 04/16/19 04/17/19 04/17/19 18:59 06:59 18:59 Intake Total 2575 2450 Output Total 373 815 550 Balance 2202 1635 -550 Intake: Intake, IV Titration 1999 2000 Amount Dextrose 5%-0.9% NaCl 1, 1000 2000 000 ml @ 125 mls/hr IV . Q8H [facility] Rx#:[id number] Sodium Chloride 0.9% 1, 1000 000 ml @ 100 mls/hr IV . Q10H [facility] Rx#:[id number] Oral 575 450 Output: Drainage 48 40 50 a 18 15 20 b 30 25 30 Urine 325 775 500 Other: Voiding Method Toilet Toilet # Voids 1 - Exam GEN. APPEARANCE: alert, in no apparent distress HEAD EXAM: atraumatic, normocephalic, normal inspection EYE EXAM: no pallor, no icterus RESPIRATORY EXAM: normal lung sounds bilaterally. Decreased at the lower lung bases. CARDIOVASCULAR EXAM: S1 and S2 heard. GI/ABDOMINAL EXAM: soft, decreased bowel sounds. Surgical scar in place. No active bleeding. MIRANDA drain in place-with 5- 10 ml of sanguinous discharge EXTREMITIES EXAM: No edema. NEUROLOGICAL EXAM: alert, oriented X3, no focal deficits - Labs CBC & Chem 7: 04/17/19 07:13 04/16/19 10:24 Labs: Abnormal Lab Results - Last 24 Hours (Table) 04/16/19 04/17/19 Range/Units 16:05 07:13 RBC 3.43 L 3.29 L (3.80-5.40) m/uL Hgb 9.9 L 9.8 L (11.4-16.0) gm/dL Hct 32.2 L 31.2 L (34.0-46.0) % MCHC 30.7 L (31.0-37.0) g/dL Assessment and Plan Assessment: ASSESSMENT Status post abdominal hernia repair and panniculectomy - postop day 2 Hypotension with dizziness - secondary to poor by mouth intake Shortness of breath- probably secondary to atelectasis Major depressive disorder Acquired hypothyroidism PLAN: Patient to be given 1 L of fluid bolus and increase her maintenance fluids. Encouraged to continue with incentive spirometry. Continue with the rest of her current medication regimen. DVT prophylaxis and pain management by primary care team. Further recommendations to follow depending on the progress of the patient.
[2019-04-17] MEDS ORDERED: Potassium Replacement Protocol 1 EACH MISC MISCELLANE PRN (14:23)
[2019-04-17] MEDS ORDERED: ACETAMINOPHEN TAB 500 MG TAB PO SCH (14:30)
[2019-04-17] MEDS: POTASSIUM CHLORIDE ER 20 MEQ TAB.ER PO SCH ×2 (18:30→18:31)
[2019-04-17] MEDS: Acetaminophen-Codeine 300-30mg TAB PO PRN (23:43)
[2019-04-18] MEDS: KETOROLAC 30 MG/ML 1 ML VIAL IVP SCH ×3 (01:23→12:02)
[2019-04-18 06:01] VITALS: TEMP 98.2
[2019-04-18] MEDS: Acetaminophen-Codeine 300-30mg TAB PO PRN ×2 (06:01→11:09)
[2019-04-18] MEDS ORDERED: SODIUM CHLORIDE 0.9% 1,000 ML IV SCH (08:15)
[2019-04-18] MEDS: FLUoxetine HCL 10 MG CAP PO SCH (08:34)
[2019-04-18] MEDS: PANTOPRAZOLE 40 MG/10 ML VIAL IVP SCH (08:34)
[2019-04-18] MEDS: THYROID, PORK 30 MG TAB PO SCH (08:34)
[2019-04-18 08:43] VITALS: BP 134/70; PULSE 68; RESP 16
[2019-04-18] MEDS ORDERED: ENOXAPARIN 30 MG/0.3 ML SYRINGE SQ SCH (09:00)
--- NOTE | 2019-04-18 11:12 | P.PN ---
Subjective Progress Note Date: 04/18/19 CHIEF COMPLAINT: Panniculitis HISTORY OF PRESENT ILLNESS: The patient is a 58-year-old female status post panniculectomy, 04/15/19. She is POD 3. She is feeling much better today. Less complaints of dizziness. Narcotics have been discontinued. She was placed on Tylenol and ibuprofen including Tylenol 3 protocol for which her pain has been improved. No further reports of hypotension. She is tolerating diet. She ambulates to the restroom. She uses her incentive spirometer. Decreased complaints of troubles with breathing. ROS: No reports of nausea and vomiting. No fevers or chills. No new chest pain. No productive sputum PHYSICAL EXAM: VITAL SIGNS: Reviewed CONSTITUTIONAL: Well developed and in no acute distress. EYES: Conjuctivae without sclera icterus. Extraocular movements grossly intact. HEAD, EARS, NOSE, THROAT: Moist buccal mucosa. Head is atraumatic, normocephalic. Hears conversational speech. No nasal drainage. NECK: Supple. No thyroidomegaly. RESPIRATORY: Non-labored respirations and equal bilateral excursions. CARDIOVASCULAR: Palpable 2+ radial pulses. Regular rate. Regular rhythm. ABDOMEN: Dressing placed along lower abdominal incision secondary to pain from abdominal binder. MIRANDA serosanguineous and stripped by me at bedside. MIRANDA dressings also changed. Incisions clean dry and intact. Abdominal binder present. Dressing secured along lower abdomen and at MIRANDA sites with Optifoam. MUSCULOSKELETAL: No gross deformity of the lower extremities noted. No clubbing. No cyanosis. SKIN: Good skin turgor. Well perfused. NEUROLOGIC: Cranial nerves I through XII grossly intact. No focal or lateralizing signs. PSYCH: Appropriate affect. Alert and oriented to person, place and time. LABS: Reviewed improvement of potassium and electrolytes. ASSESSMENT: 1. Status post panniculectomy. PLAN: 1. Patient may be discharged home once ambulating more. 2. Dressings to be monitored at bariatric center. Objective - Vital Signs Vital signs: Vital Signs Temp 98.2 F 04/18/19 04:00 Pulse 68 04/18/19 08:42 Resp 16 04/18/19 08:42 BP 134/70 04/18/19 08:42 Pulse Ox 94 L 04/18/19 08:42 Intake & Output 04/17/19 04/18/19 04/18/19 18:59 06:59 18:59 Output Total 170 610 280 Balance -835 -610 -280 Output: Drainage 135 60 30 a 50 15 5 b 85 45 25 Urine 700 550 250 Other: Voiding Method Toilet Toilet Toilet # Voids 1 1 - Labs CBC & Chem 7: 04/17/19 07:13 04/17/19 07:00 Labs: Abnormal Lab Results - Last 24 Hours (Table) 04/17/19 Range/Units 07:00 Chloride 112 H (98-107) mmol/L Calcium 7.9 L (8.4-10.2) mg/dL Assessment and Plan (1) Dizziness Status: Acute Code(s): R42 - DIZZINESS AND GIDDINESS SNOMED Code(s): 213901568 (2) Atelectasis Status: Acute Code(s): J98.11 - ATELECTASIS SNOMED Code(s): 71872851 (3) Dehydration Status: Acute Code(s): E86.0 - DEHYDRATION SNOMED Code(s): 37665865 (4) Hypotension after procedure Status: Acute Code(s): I95.81 - POSTPROCEDURAL HYPOTENSION SNOMED Code(s): 03088641241897618 (5) Panniculitis Status: Acute Code(s): M79.3 - PANNICULITIS, UNSPECIFIED SNOMED Code(s): 14059399 (6) S/P panniculectomy Status: Acute Code(s): Z98.890 - OTHER SPECIFIED POSTPROCEDURAL STATES SNOMED Code(s): 228683035
--- NOTE | 2019-04-18 13:11 | P.DS ---
Providers Date of admission: 04/16/19 06:38 Expected date of discharge: 04/18/19 Attending physician: Maxime Jean Consults: 04/15/19 12:14 Consult Physician Routine Consulting Provider: Nikhil Florez Consult Reason/Comments: Medical management Do you want consulting provider notified?: Yes Primary care physician: Janeen Celis - Discharge Diagnosis(es) (1) Atelectasis Status: Acute (2) Dehydration Status: Acute (3) Depressive disorder Status: Acute (4) Dizziness Status: Acute (5) Hypotension after procedure Status: Acute (6) Panniculitis Status: Acute (7) S/P panniculectomy Status: Acute Hospital Course: CHIEF COMPLAINT: Panniculitis HISTORY OF PRESENT ILLNESS: The patient is a 58-year-old female status post panniculectomy, 04/15/19. She is POD 3. She is feeling much better today. Less complaints of dizziness. Narcotics have been discontinued. She was placed on Tylenol and ibuprofen including Tylenol 3 protocol for which her pain has been improved. No further reports of hypotension. She is tolerating diet. She ambulates to the restroom. She uses her incentive spirometer. Decreased complaints of troubles with breathing. Her hypotension has improved. ROS: No reports of nausea and vomiting. No fevers or chills. No new chest pain. No productive sputum PHYSICAL EXAM: VITAL SIGNS: Reviewed CONSTITUTIONAL: Well developed and in no acute distress. EYES: Conjuctivae without sclera icterus. Extraocular movements grossly intact. HEAD, EARS, NOSE, THROAT: Moist buccal mucosa. Head is atraumatic, normocephalic. Hears conversational speech. No nasal drainage. NECK: Supple. No thyroidomegaly. RESPIRATORY: Non-labored respirations and equal bilateral excursions. CARDIOVASCULAR: Palpable 2+ radial pulses. Regular rate. Regular rhythm. ABDOMEN: Dressing placed along lower abdominal incision secondary to pain from abdominal binder. MIRANDA serosanguineous and stripped by me at bedside. dressings also changed. Incisions clean dry and intact. Abdominal binder present. Dressing secured along lower abdomen and at MIRANDA sites with Optifoam. MUSCULOSKELETAL: No gross deformity of the lower extremities noted. No clubbing. No cyanosis. SKIN: Good skin turgor. Well perfused. NEUROLOGIC: Cranial nerves I through XII grossly intact. No focal or lateralizing signs. PSYCH: Appropriate affect. Alert and oriented to person, place and time. LABS: Reviewed improvement of potassium and electrolytes. ASSESSMENT: 1. Status post panniculectomy. PLAN: 1. Patient may be discharged home once ambulating more. 2. Dressings to be monitored at bariatric center. Patient Condition at Discharge: Stable Plan - Discharge Summary Discharge Rx Participant: No New Discharge Prescriptions: New Docusate [Colace] 100 mg PO BID #30 capsule Acetaminophen-Codeine 300-30mg [Tylenol w/codeine #3] 2 tab PO Q6H PRN 3 Days #24 tablet PRN Reason: Pain Ondansetron Odt [Zofran Odt] 4 mg PO Q8HR PRN #9 tab PRN Reason: Nausea Continue Thyroid,Pork [[place] Thyroid] 60 mg PO QAM L.acidoph,Paracasei, B.lactis [Probiotic] 1 cap PO QAM FLUoxetine HCL [PROzac] 10 mg PO DAILY EPINEPHrine (Auto Inject) [Epipen] 0.3 mg IM ONCE PRN PRN Reason: Anaphylaxis Multivitamin [Multivitamins Adult Gummies] 2 tab PO DAILY Pantoprazole Sodium [Protonix] 40 mg PO DAILY Teriparatide [Forteo] 20 mcg SQ DAILY D-Mulsion 2 drop PO DAILY Discharge Medication List Thyroid,Pork [[place] Thyroid] 60 mg PO QAM 05/10/15 [History] L.acidoph,Paracasei, B.lactis [Probiotic] 1 cap PO QAM 06/21/16 [History] FLUoxetine HCL [PROzac] 10 mg PO DAILY 12/09/16 [History] EPINEPHrine (Auto Inject) [Epipen] 0.3 mg IM ONCE PRN 10/28/18 [History] Multivitamin [Multivitamins Adult Gummies] 2 tab PO DAILY 10/28/18 [History] Pantoprazole Sodium [Protonix] 40 mg PO DAILY 02/16/19 [History] D-Mulsion 2 drop PO DAILY 04/12/19 [History] Teriparatide [Forteo] 20 mcg SQ DAILY 04/12/19 [History] Docusate [Colace] 100 mg PO BID #30 capsule 04/16/19 [Rx] Acetaminophen-Codeine 300-30mg [Tylenol w/codeine #3] 2 tab PO Q6H PRN 3 Days #24 tablet 04/18/19 [Rx] Ondansetron Odt [Zofran Odt] 4 mg PO Q8HR PRN #9 tab 04/18/19 [Rx] Follow up Appointment(s)/Referral(s): Maxime Jean MD [STAFF PHYSICIAN] - 04/27/19 (Please schedule follow up for 04/27/19) Activity/Diet/Wound Care/Special Instructions: No driving while taking tylenol 3s No lifting over 10 pounds or a gallon of milk. You may shower. No soaking or tub baths Very light activity until you are reevaluated at your follow up appointment with your surgeon Keep a log of MIRANDA drain output and bring with you to follow-up appointment call the office with any questions, comments or concerns. monitor or surgical sites of any signs of infection. continue to drink plenty of fluids. Discharge Disposition: HOME SELF-CARE
[2019-04-18] MEDS: ONDANSETRON 4 MG/2 ML VIAL IVP PRN (13:28)
--- NOTE | 2019-04-18 14:42 | P.PN ---
Subjective Progress Note Date: 04/18/19 Principal diagnosis: Status post abdominal hernia repair and panniculectomy - postop day 3 Shahla Stover is a 58 yo F with hx gastric sleeve, GERD, abdominal hernias, depression who is POD#3 after hernia repair and panniculectomy. On 04/18/2019- patient does not complain of dizziness anymore. She denies having any nausea vomiting. No abdominal pain. She did not have a bowel movement but has been passing gas. On reviewing her vitals , patient's blood pressure is much better compared to yesterday. Patient's labs reviewed.. Active Medications Acetaminophen/Codeine Phosphate (Tylenol #3) 2 each PO Q6HR PRN PRN Reason: Pain Last Admin: 04/18/19 11:09 Dose: 2 each Documented by: Diphenhydramine HCl (Benadryl) 25 mg IVP Q6HR PRN PRN Reason: Itching Last Admin: 04/17/19 03:54 Dose: 25 mg Documented by: Enoxaparin Sodium (Lovenox) 30 mg SQ DAILY [facility] Last Admin: 04/18/19 08:34 Dose: 30 mg Documented by: Fluoxetine HCl (Prozac) 10 mg PO DAILY [facility] Last Admin: 04/18/19 08:34 Dose: 10 mg Documented by: Sodium Chloride (Saline 0.9%) 1,000 mls @ 75 mls/hr IV .[id number] [facility] Last Admin: 04/18/19 08:40 Dose: 75 mls/hr Documented by: Ketorolac Tromethamine (Toradol) 30 mg IVP Q6HR [facility] Stop: 04/22/19 14:31 Last Admin: 04/18/19 12:02 Dose: 30 mg Documented by: Miscellaneous Information (Potassium Per Protocol) 1 each MISCELLANE DAILY PRN; Protocol PRN Reason: Per Protocol Naloxone HCl (Narcan) 0.2 mg IV Q2M PRN PRN Reason: Opioid Reversal Ondansetron HCl (Zofran) 4 mg IVP Q8HR PRN PRN Reason: Nausea And Vomiting Last Admin: 04/18/19 13:28 Dose: 4 mg Documented by: Ondansetron HCl (Zofran) 4 mg IVP Q8HR PRN PRN Reason: Nausea And Vomiting Pantoprazole Sodium (Protonix) 40 mg IVP DAILY [facility] Last Admin: 04/18/19 08:34 Dose: 40 mg Documented by: Thyroid ([place] Thyroid) 60 mg PO QAM [facility] Last Admin: 04/18/19 08:34 Dose: 60 mg Documented by: Objective - Vital Signs Vital signs: Vital Signs Temp 98.2 F 04/18/19 04:00 Pulse 68 04/18/19 08:42 Resp 16 04/18/19 08:42 BP 134/70 04/18/19 08:42 Pulse Ox 94 L 04/18/19 08:42 Intake & Output 04/17/19 04/18/19 04/18/19 18:59 06:59 18:59 Output Total 835 610 815 Balance -835 -610 -815 Output: Drainage 135 60 115 a 50 15 30 b 85 45 85 Urine 700 550 700 Other: Voiding Method Toilet Toilet Toilet # Voids 1 1 - Exam GEN. APPEARANCE: alert, in no apparent distress HEAD EXAM: atraumatic, normocephalic, normal inspection EYE EXAM: no pallor, no icterus RESPIRATORY EXAM: normal lung sounds bilaterally. Decreased at the lower lung bases. CARDIOVASCULAR EXAM: S1 and S2 heard. GI/ABDOMINAL EXAM: soft, decreased bowel sounds. Surgical scar in place. No active bleeding. EXTREMITIES EXAM: No edema. NEUROLOGICAL EXAM: alert, oriented X3, no focal deficits - Labs CBC & Chem 7: 04/17/19 07:13 04/17/19 07:00 Assessment and Plan Assessment: ASSESSMENT Status post abdominal hernia repair and panniculectomy - postop day 3 Hypotension with dizziness - resolved Shortness of breath- probably secondary to atelectasis - resolved Major depressive disorder Acquired hypothyroidism PLAN: Patient is not feeling dizzy anymore obtaining visiting her IV fluids and by mouth intake. Patient is encouraged to continue with incentive spirometry at home as well. Discharge medications have been reconciled. Patient is medically cleared for discharge. She is advised to follow up with her surgeon in 7- 10 days.
== END 2019-04-18 14:50 | disposition home or self-care (01) ==
LOC: OR 08:17 → 6PED 12:15 → OR 04-16 06:22 → 6PED 04-16 06:38
PROVIDERS: ADMIT Surgery; ATTEND Surgery
DX: M79.3 Panniculitis, unspecified (principal); I95.81 Postprocedural hypotension; E86.0 Dehydration; J98.11 Atelectasis; F32.9 Major depressive disorder, single episode, unspecified; K46.9 Unspecified abdominal hernia without obstruction or gangrene; E03.9 Hypothyroidism, unspecified; J45.909 Unspecified asthma, uncomplicated; K21.9 Gastro-esophageal reflux disease without esophagitis; M19.90 Unspecified osteoarthritis, unspecified site; M81.0 Age-related osteoporosis without current pathological fracture; Z90.49 Acquired absence of other specified parts of digestive tract; Z98.84 Bariatric surgery status; Z79.899 Other long term (current) drug therapy; Z79.890 Hormone replacement therapy; Z88.5 Allergy status to narcotic agent; Z88.2 Allergy status to sulfonamides; Z91.030 Bee allergy status; Z83.3 Family history of diabetes mellitus; Z80.0 Family history of malignant neoplasm of digestive organs; Z83.2 Family history of diseases of the blood and blood-forming organs and certain disorders involving the immune mechanism
CPT/HCPCS: 64488; 80048 ×2; 85025; 85027 ×2; 15830; G0378 ×3; J1200 ×2; J1644; J1100; J0690 ×2; J2405 ×3; J1650 ×3; J3010; J1885 ×4; C9113 ×2; J2250